=== PATIENT | male | born 1960 | race Caucasian/White ===

== ENCOUNTER 2018-04-14 07:59 | Inpatient (IN) | payer BC ==
[2018-04-14] MEDS ORDERED: Sodium Chloride 0.9% 10 ML Syringe FLUSH PRN (08:17)
[2018-04-14] MEDS ORDERED: Sodium Chloride 0.9% 1,000 ML IV STA (08:17)
[2018-04-14] MEDS ORDERED: HYDROmorphone 0.5 MG/0.5 ML SYRINGE IVPUSH ONE ×2 (08:19→09:20)
--- NOTE | 2018-04-14 09:32 | US ---
Limited abdominal ultrasound: Multiple real-time images of the upper right abdomen were obtained. Comparison: No previous study. Technologist's note: Suboptimal exam due to bowel gas. Findings: Multiple gallstones are seen. No gallbladder wall thickening is seen. Common bile duct measures at the upper limits of normal at 7 mm. Liver is echogenic. No discrete abnormality is seen within the liver. Right kidney shows no hydronephrosis or mass. Right kidney measures 11.4 cm in length. Inferior vena cava is patent. Pancreas is incompletely seen. Visualized portions of the pancreas are within normal limits. Portal vein shows normal hepatopedal flow. Impression: 1. Multiple gallstones. No gallbladder wall thickening is seen. Common bile duct measures at the upper limits of normal at 7 mm. 2. Echogenic liver most likely representing fatty infiltration. 3. No additional abnormality is appreciated on right upper quadrant abdominal ultrasound. Diagnostic code #3
[2018-04-14] MEDS ORDERED: Labetalol 100 MG/20 ML MDV IVPUSH ONE ×2 (09:46→10:49)
--- NOTE | 2018-04-14 10:09 | EDM.PDOC ---
ED HPI GENERAL MEDICAL PROBLEM - General Chief Complaint: Chest Pain Stated Complaint: [facility] Time Seen by Provider: 04/14/18 08:07 Source of Information: Reports: Patient, EMS History Limitations: Reports: No Limitations - History of Present Illness INITIAL COMMENTS - FREE TEXT/NARRATIVE: The patient arrived by [facility]. He woke up this morning and had nausea and vomiting. He then developed epigastric and RUQ abdominal pain. The pain also traveled to his chest. He has some mild shortness of breath. He has no diarrhea or dysuria. He has no fever, chills or cough. He has a history of CABG 6 years ago. He still has his gallbladder and appendix. Onset: Sudden Duration: Hour(s): Location: Reports: Chest, Abdomen Quality: Reports: Sharp Severity: Moderate Improves with: Reports: None Worsens with: Reports: None Associated Symptoms: Reports: Chest Pain, Nausea/Vomiting, Shortness of Breath. Denies: Fever/Chills, Headaches Treatments ARCHIVES TECHNICIAN: Reports: See EMS Report, Other (see below) Other Treatments ARCHIVES TECHNICIAN: metoprolol Chest Pain Score (Numeric/FACES): 6 - Related Data Allergies Allergy/AdvReac Type Severity Reaction Status Date / Time No Known Allergies Allergy Verified 04/14/18 08:10 Home Meds: Home Meds Dapagliflozin/Metformin HCl [Xigduo Xr 5 mg-1,000 mg Tablet] 2 tab PO DAILY [History] Ezetimibe [Zetia] 10 mg PO DAILY 04/14/18 [History] Liraglutide [Victoza 3-Tez] 1.8 mg SQ DAILY 04/14/18 [History] Lisinopril [Zestril] 40 mg PO DAILY 04/14/18 [History] Nebivolol HCl [Bystolic] 10 mg PO DAILY 04/14/18 [History] Pioglitazone [Actos] 30 mg PO DAILY 04/14/18 [History] atorvaSTATin [Lipitor] 40 mg PO DAILY 04/14/18 [History] Past Medical History HEENT History: Reports: None Cardiovascular History: Reports: Hypertension, [place] Endocrine/Metabolic History: Reports: Diabetes, Type II - Past Surgical History HEENT Surgical History: Reports: ERICA Cardiovascular Surgical History: Reports: Coronary Artery Bypass Social & Family History - Family History Family Medical History: Noncontributory - Tobacco Use Smoking Status *Q: Former Smoker Used Tobacco, but Quit: Yes Month/Year Tobacco Last Used: 2012 - Caffeine Use Caffeine Use: Reports: Soda - Recreational Drug Use Recreational Drug Use: No ED ROS GENERAL - Review of Systems Review Of Systems: See Below Constitutional: Reports: No Symptoms HEENT: Reports: No Symptoms Respiratory: Reports: Shortness of Breath Cardiovascular: Reports: Chest Pain Endocrine: Reports: No Symptoms GI/Abdominal: Reports: Abdominal Pain, Nausea, Vomiting : Reports: No Symptoms Musculoskeletal: Reports: No Symptoms ED EXAM, GENERAL - Physical Exam Exam: See Below Exam Limited By: No Limitations General Appearance: Alert, No Apparent Distress Eye Exam: Right Eye: Nystagmus Ears: Normal External Exam Nose: Normal Inspection Head: Atraumatic, Normocephalic Neck: Normal Inspection Respiratory/Chest: No Respiratory Distress, Lungs Clear, Normal Breath Sounds Cardiovascular: Regular Rate, Rhythm, No Edema, No Murmur GI/Abdominal: Soft, No Organomegaly, No Mass, Tender (Moderate tenderness to the epigastric and RUQ) Back Exam: Normal Inspection Extremities: Normal Inspection EKG INTERPRETATION EKG Date: 04/14/18 Time: 08:06 Rhythm: NSR Rate (Beats/Min): 76 [place]: Normal P-Wave: Present QRS: Normal ST-T: Normal QT: Normal Course - Vital Signs Last Recorded V/S: Last Vital Signs Temp 96.9 F 04/14/18 08:06 Pulse 79 04/14/18 09:49 Resp 13 04/14/18 08:06 BP 202/100 H 04/14/18 09:49 Pulse Ox 94 L 04/14/18 08:06 - Orders/Labs/Meds Orders: Active Orders 24 hr Category Date Time Status EKG Documentation Completion [RC] ASDIRECTED Care 04/14/18 08:06 Active Peripheral IV Care [RC] . DIRECTED Care 04/14/18 08:18 Active Chest 1V Frontal [CR] Stat Exams 04/14/18 08:17 Taken GLYCOSYLATED HEMOGLOBIN,HGBA1C [CHEM] Stat Lab 04/14/18 10:16 Ordered UA W/MICROSCOPIC [URIN] Stat Lab 04/14/18 08:34 Ordered Sodium Chloride 0.9% [Saline Flush] Med 04/14/18 08:17 Active 10 ml FLUSH ASDIRECTED PRN Peripheral IV Insertion Adult [OM.PC] Stat Oth 08/30/18 08:17 Ordered EKG 12 Lead [EK] Stat Ther 04/14/18 08:06 Ordered Medication Orders Sodium Chloride (Saline Flush) 10 ml FLUSH ASDIRECTED PRN PRN Reason: Keep Vein Open Last Admin: 04/14/18 08:26 Dose: 10 ml Labs: Laboratory Tests 04/14/18 04/14/18 04/14/18 Range/Units 08:30 08:30 08:34 WBC 11.77 H (4.23-9.07) K/mm3 RBC 6.64 H (4.63-6.08) M/mm3 Hgb 18.8 H (13.7-17.5) gm/L Hct 54.4 H (40.1-51.0) % MCV 81.9 (79.0-92.2) fl MCH 28.3 (25.7-32.2) pg MCHC 34.6 (32.2-35.5) g/dl RDW Std Deviation 41.5 (35.1-43.9) fL Plt Count 222 (163-337) K/mm3 MPV 10.2 (9.4-12.3) fl Neut % (Auto) 88.5 H (34.0-67.9) % Lymph % (Auto) 6.5 L (21.8-53.1) % [place] % (Auto) 4.1 L (5.3-12.2) % Eos % (Auto) 0.1 L (0.8-7.0) Baso % (Auto) 0.3 (0.1-1.2) % Neut # (Auto) 10.43 H (1.78-5.38) K/mm3 Lymph # (Auto) 0.76 L (1.32-3.57) K/mm3 [place] # (Auto) 0.48 (0.30-0.82) K/mm3 Eos # (Auto) 0.01 L (0.04-0.54) K/mm3 Baso # (Auto) 0.03 (0.01-0.08) K/mm3 Manual Slide Review Abnormal smear Sodium 138 (136-145) mEq/L Potassium 4.3 (3.5-5.1) mEq/L Chloride 102 (98-107) mEq/L Carbon Dioxide 25 (21-32) mEq/L Anion Gap 15.3 H (5-15) BUN 24 H (7-18) mg/dL Creatinine 1.1 (0.7-1.3) mg/dL Est Cr Clr Drug Dosing 63.67 mL/min Estimated GFR (MDRD) > 60 (>60) mL/min BUN/Creatinine Ratio 21.8 H (14-18) Glucose 349 H (74-106) mg/dL Calcium 9.3 (8.5-10.1) mg/dL Total Bilirubin 0.6 (0.2-1.0) mg/dL AST 18 (15-37) U/L ALT 25 (16-63) U/L Alkaline Phosphatase 91 (46-116) U/L Troponin I < 0.017 (0.00-0.056) ng/mL Total Protein 7.6 (6.4-8.2) g/dl Albumin 4.1 (3.4-5.0) g/dl Globulin 3.5 gm/dL Albumin/Globulin Ratio 1.2 (1-2) Lipase 18897 H (73-393) U/L Urine Color Yellow (Yellow) Urine Appearance Slt cloudy H (Clear) Urine pH 6.0 (5.0-8.0) Ur Specific [place] 1.015 (1.005-1.030) Urine Protein 2+ H (Negative) Urine Glucose (UA) 2+ H (Negative) Urine Ketones Trace H (Negative) Urine Occult Blood 1+ H (Negative) Urine Nitrite Negative (Negative) Urine Bilirubin Negative (Negative) Urine Urobilinogen 0.2 (0.2-1.0) Ur Leukocyte Esterase Negative (Negative) Urine RBC 0-5 (0-5) /hpf Urine WBC 0-5 (0-5) /hpf Ur Epithelial Cells 0-5 (0-5) /hpf Urine Bacteria Not seen (FEW) /hpf Urine Mucus Not seen (FEW) /hpf Meds: Medications Generic Name Dose Route Start Last Admin Trade Name Freq PRN Reason Stop Dose Admin Sodium Chloride 10 ml 04/14/18 08:17 04/14/18 08:26 Saline Flush FLUSH 10 ml ASDIRECTED PRN Administration Keep Vein Open Discontinued Medications Generic Name Dose Route Start Last Admin Trade Name Freq PRN Reason Stop Dose Admin Hydromorphone HCl 0.5 mg 04/14/18 08:19 04/14/18 08:26 Dilaudid IVPUSH 04/14/18 08:20 0.5 mg ONETIME ONE Administration Hydromorphone HCl 0.5 mg 04/14/18 09:20 04/14/18 09:27 Dilaudid IVPUSH 04/14/18 09:21 0.5 mg ONETIME ONE Administration Sodium Chloride 1,000 mls @ 1,000 mls/hr 04/14/18 08:17 04/14/18 08:27 Normal Saline IV 04/14/18 09:16 1,000 mls/hr .BOLUS STA Administration Labetalol HCl 20 mg 04/14/18 09:46 04/14/18 09:49 Normodyne IVPUSH 04/14/18 09:47 20 mg ONETIME ONE Administration Protocol - Re-Assessments/Exams Free Text/Narrative Re-Assessment/Exam: 04/14/18 10:22 The patient came by ambulance. He was given some zofran. I ordered an IV, labs , UA, EKG, CXR, and an US of his gallbladder. His EKG shows a NSR with no acute changes. His CXR looks good. His US shows multiple gallstones. No gallbladder wall thickening is seen. Common bile duct measures at the upper limits of normal at 7mm. Echogenic liver most likely representing fatty infiltration. No additional abnormality is appreciated on right upper quadrant abdominal US. His WBC was elevated at 11.77. His Hgb was elevated at 18.8. His anion gap was elevated at 15.3. His glucose was elevated at 349. His troponin was negative. His lipase was very elevated at 15,283. His UA shows no UTI. He has gallbladder pancreatitis. His BP was high. He vomited up his medications. I will give him a dose of labetalol here. I called Dr Monte and he agreed to the admission. Departure - Departure Time of Disposition: 10:30 Disposition: Admitted As Inpatient 65 Condition: Fair Clinical Impression: Atypical chest pain, Gallstones Pancreatitis Qualifiers: Chronicity: acute Pancreatitis type: biliary Acute pancreatitis complication: no infection or necrosis Qualified Code(s): K85.10 - Biliary acute pancreatitis without necrosis or infection Hypertension Qualifiers: Hypertension type: essential hypertension Qualified Code(s): I10 - Essential ( primary) hypertension Referrals: PCP,Not In Area [Primary Care Provider] - Forms: ED Department Discharge - My Orders Last 24 Hours: My Active Orders 04/14/18 08:06 EKG Documentation Completion [RC] ASDIRECTED EKG 12 Lead [EK] Stat 04/14/18 08:17 Chest 1V Frontal [CR] Stat Sodium Chloride 0.9% [Saline Flush] 10 ml FLUSH ASDIRECTED PRN Peripheral IV Insertion Adult [OM.PC] Stat 04/14/18 08:18 Peripheral IV Care [RC] . DIRECTED 04/14/18 08:34 UA W/MICROSCOPIC [URIN] Stat 04/14/18 10:16 GLYCOSYLATED HEMOGLOBIN,HGBA1C [CHEM] Stat - Assessment/Plan Last 24 Hours: My Active Orders 04/14/18 08:06 EKG Documentation Completion [RC] ASDIRECTED EKG 12 Lead [EK] Stat 04/14/18 08:17 Chest 1V Frontal [CR] Stat Sodium Chloride 0.9% [Saline Flush] 10 ml FLUSH ASDIRECTED PRN Peripheral IV Insertion Adult [OM.PC] Stat 04/14/18 08:18 Peripheral IV Care [RC] . DIRECTED 04/14/18 08:34 UA W/MICROSCOPIC [URIN] Stat 04/14/18 10:16 GLYCOSYLATED HEMOGLOBIN,HGBA1C [CHEM] Stat
[2018-04-14] MEDS ORDERED: Acetaminophen 325 MG Tab PO PRN (11:51)
[2018-04-14] MEDS ORDERED: Bisacodyl 5 MG Tab PO PRN (11:51)
[2018-04-14] MEDS ORDERED: Promethazine 12.5 MG in Sodium Chloride 0.9% 50 ML IV PRN (11:51)
[2018-04-14] MEDS ORDERED: Polyethylene Glycol 3350 Powder 17 GM Packet PO PRN (11:51)
[2018-04-14] MEDS ORDERED: Metoprolol Tartrate 5 MG/5 ML SDV IVPUSH PRN (11:51)
[2018-04-14] MEDS ORDERED: Ondansetron 4 MG/2 ML SDV IV PRN (11:51)
[2018-04-14] MEDS ORDERED: Acetaminophen 650 MG Supp RECTAL PRN (11:51)
[2018-04-14] MEDS ORDERED: LORazepam 2 MG/ML SDV IV PRN (11:51)
[2018-04-14] MEDS ORDERED: LORazepam 2 MG/ML SDV IVPUSH PRN (11:51)
[2018-04-14] MEDS ORDERED: Albuterol/Ipratropium 3.0-0.5 MG/3 ML Neb Soln NEB PRN (11:51)
[2018-04-14] MEDS ORDERED: Docusate Sodium 100 MG Cap PO PRN (11:51)
[2018-04-14] MEDS ORDERED: Magnesium Hydroxide 400 MG/5 ML Susp 30 ML Cup PO PRN (11:51)
[2018-04-14] MEDS ORDERED: Nicotine 21 MG/24 Hr Patch TRDERM PRN (12:00)
--- NOTE | 2018-04-14 12:08 | PCM.HP ---
<ToniaPaola - Last Filed: 04/14/18 13:56> H&P History of Present Illness - General Date of Service: 04/14/18 Admit Problem/Dx: Admission Diagnosis/Problem Admission Diagnosis/Problem Pancreatitis Source of Information: Patient History Limitations: Reports: No Limitations - History of Present Illness Initial Comments - Free Text/Narative: 57 y/o male arrived to ER 04/14 via [facility]. Upon waking up this morning he was experiencing nausea and vomiting followed by epigastric and RUQ pain, which radiated to his chest. He also had some dyspnea and diarrhea, but denied dysuria, fever, chills, and cough. He had an [place] and CABG 6 years ago. ER workup included EKG which showed NSR and no acute changes. CXR was benign. Abdominal US was significant for gallstones and echogenic liver but negative for gallbladder wall thickening or any other abnormalities on RUQ. Labs ordered in the ER showed WBC elevated at 11.77, Hgb elevated at 18.8, anion gap elevated at 15.3, glucose elevated at 349, negative troponin, and lipase very elevated at 15,283. His UA shows no UTI. His BP was high at 202/100. He does have hypertension but vomited up his BP medications today. He was given a dose of labetalol in the ER. It was determined the patient has gallbladder pancreatitis that warranted admission to the hospital for further management. Onset of Symptoms: Reports: Today Duration of Symptoms: Reports: Hour(s): Location: Reports: Abdomen Severity: Severe Associated Symptoms: Reports: Nausea/Vomiting, Shortness of Breath Chest Pain Score (Numeric/FACES): 6 Abdomen Pain Score (Numeric/FACES): 4 - Related Data Allergies/Adverse Reactions: Allergies Allergy/AdvReac Type Severity Reaction Status Date / Time No Known Allergies Allergy Verified 04/14/18 08:10 Home Medications: Home Meds Aspirin 1 tab PO DAILY 04/14/18 [History] Dapagliflozin/Metformin HCl [Xigduo Xr 5 mg-1,000 mg Tablet] 2 tab PO DAILY [History] Ezetimibe [Zetia] 10 mg PO DAILY 04/14/18 [History] Liraglutide [Victoza 3-Tez] 1.8 mg SQ DAILY 04/14/18 [History] Lisinopril [Zestril] 40 mg PO DAILY 04/14/18 [History] Nebivolol HCl [Bystolic] 10 mg PO DAILY 04/14/18 [History] Pioglitazone [Actos] 30 mg PO DAILY 04/14/18 [History] atorvaSTATin [Lipitor] 40 mg PO DAILY 04/14/18 [History] Past Medical History HEENT History: Reports: None Cardiovascular History: Reports: Hypertension, [place] Endocrine/Metabolic History: Reports: Diabetes, Type II - Past Surgical History HEENT Surgical History: Reports: LASIK Cardiovascular Surgical History: Reports: Coronary Artery Bypass Social & Family History - Family History Family Medical History: Noncontributory - Tobacco Use Smoking Status *Q: Former Smoker Used Tobacco, but Quit: Yes Month/Year Tobacco Last Used: 08/2005 Second Hand Smoke Exposure: Yes - Caffeine Use Caffeine Use: Reports: Coffee, Energy Drinks, Soda, Tea - Recreational Drug Use Recreational Drug Use: No H&P Review of Systems - Review of Systems: Review Of Systems: See Below General: Reports: Fatigue HEENT: Reports: No Symptoms Pulmonary: Reports: Shortness of Breath Cardiovascular: Reports: No Symptoms Gastrointestinal: Reports: Abdominal Pain, Diarrhea, Nausea, Vomiting Genitourinary: Reports: No Symptoms Musculoskeletal: Reports: No Symptoms Skin: Reports: No Symptoms Psychiatric: Reports: No Symptoms Neurological: Reports: No Symptoms Hematologic/Lymphatic: Reports: No Symptoms Immunologic: Reports: No Symptoms Review of Systems Comment:: Patient is feeling better following administration of pain medications but abdominal discomfort has not disappeared completely. He has not experienced vomiting or diarrhea since arrival to the hospital but is still having some nausea. He is tired and wishes to rest as he was unable to sleep all night. He reports no other symptoms currently. Exam - Exam Exam: See Below - Vital Signs Vital Signs: Last Vital Signs Temp 96.9 F 04/14/18 08:06 Pulse 81 04/14/18 10:51 Resp 13 04/14/18 08:06 BP 216/98 H 04/14/18 10:51 Pulse Ox 94 L 04/14/18 08:06 Weight: 89.086 kg - Exam General: Alert, Oriented, Cooperative, Mild Distress HEENT: Conjunctiva Clear, EOMI, Hearing Intact, Nares Patent, Pupils Equal, Pupils Reactive Neck: Supple Lungs: Clear to Auscultation, Normal Respiratory Effort Cardiovascular: Regular Rate, Regular Rhythm GI/Abdominal Exam: Tender (ruq, epigastric) (Male) Exam: Deferred Rectal (Males) Exam: Deferred Back Exam: Normal Inspection, Full Range of Motion Extremities: Normal Inspection, Normal Range of Motion, Non-Tender, No Pedal Edema Peripheral Pulses: 2+: Radial (L), Radial (R), Posterior Tibial (L), Posterior Tibial (R) Skin: Warm, Dry, Intact Neuro Extensive - Mental Status: Normal Mood/Affect, Normal Cognition, Memory Intact Psychiatric: Alert, Normal Affect, Normal Mood Physical Exam Comments:: Patient is in mild distress but is cooperative and pleasant. There is significant epigastric and RUQ tenderness upon palpation. No other abnormalities found upon physical exam. - Patient Data Lab Results Last 24 hrs: Laboratory Results - last 24 hr 04/14/18 04/14/18 04/14/18 Range/Units 08:30 08:30 08:30 WBC 11.77 H (4.23-9.07) K/mm3 RBC 6.64 H (4.63-6.08) M/mm3 Hgb 18.8 H (13.7-17.5) gm/L Hct 54.4 H (40.1-51.0) % MCV 81.9 (79.0-92.2) fl MCH 28.3 (25.7-32.2) pg MCHC 34.6 (32.2-35.5) g/dl RDW Std Deviation 41.5 (35.1-43.9) fL Plt Count 222 (163-337) K/mm3 MPV 10.2 (9.4-12.3) fl Neut % (Auto) 88.5 H (34.0-67.9) % Lymph % (Auto) 6.5 L (21.8-53.1) % [place] % (Auto) 4.1 L (5.3-12.2) % Eos % (Auto) 0.1 L (0.8-7.0) Baso % (Auto) 0.3 (0.1-1.2) % Neut # (Auto) 10.43 H (1.78-5.38) K/mm3 Lymph # (Auto) 0.76 L (1.32-3.57) K/mm3 [place] # (Auto) 0.48 (0.30-0.82) K/mm3 Eos # (Auto) 0.01 L (0.04-0.54) K/mm3 Baso # (Auto) 0.03 (0.01-0.08) K/mm3 Manual Slide Review Abnormal smear Sodium 138 (136-145) mEq/L Potassium 4.3 (3.5-5.1) mEq/L Chloride 102 (98-107) mEq/L Carbon Dioxide 25 (21-32) mEq/L Anion Gap 15.3 H (5-15) BUN 24 H (7-18) mg/dL Creatinine 1.1 (0.7-1.3) mg/dL Est Cr Clr Drug Dosing 63.67 mL/min Estimated GFR (MDRD) > 60 (>60) mL/min BUN/Creatinine Ratio 21.8 H (14-18) Glucose 349 H (74-106) mg/dL Hemoglobin A1c 8.90 H (4.50-6.20) % Calcium 9.3 (8.5-10.1) mg/dL Total Bilirubin 0.6 (0.2-1.0) mg/dL AST 18 (15-37) U/L ALT 25 (16-63) U/L Alkaline Phosphatase 91 (46-116) U/L Troponin I < 0.017 (0.00-0.056) ng/mL Total Protein 7.6 (6.4-8.2) g/dl Albumin 4.1 (3.4-5.0) g/dl Globulin 3.5 gm/dL Albumin/Globulin Ratio 1.2 (1-2) Lipase 66643 H (73-393) U/L Urine Color (Yellow) Urine Appearance (Clear) Urine pH (5.0-8.0) Ur Specific [place] (1.005-1.030) Urine Protein (Negative) Urine Glucose (UA) (Negative) Urine Ketones (Negative) Urine Occult Blood (Negative) Urine Nitrite (Negative) Urine Bilirubin (Negative) Urine Urobilinogen (0.2-1.0) Ur Leukocyte Esterase (Negative) Urine RBC (0-5) /hpf Urine WBC (0-5) /hpf Ur Epithelial Cells (0-5) /hpf Urine Bacteria (FEW) /hpf Urine Mucus (FEW) /hpf 04/14/18 Range/Units 08:34 WBC (4.23-9.07) K/mm3 RBC (4.63-6.08) M/mm3 Hgb (13.7-17.5) gm/L Hct (40.1-51.0) % MCV (79.0-92.2) fl MCH (25.7-32.2) pg MCHC (32.2-35.5) g/dl RDW Std Deviation (35.1-43.9) fL Plt Count (163-337) K/mm3 MPV (9.4-12.3) fl Neut % (Auto) (34.0-67.9) % Lymph % (Auto) (21.8-53.1) % [place] % (Auto) (5.3-12.2) % Eos % (Auto) (0.8-7.0) Baso % (Auto) (0.1-1.2) % Neut # (Auto) (1.78-5.38) K/mm3 Lymph # (Auto) (1.32-3.57) K/mm3 [place] # (Auto) (0.30-0.82) K/mm3 Eos # (Auto) (0.04-0.54) K/mm3 Baso # (Auto) (0.01-0.08) K/mm3 Manual Slide Review Sodium (136-145) mEq/L Potassium (3.5-5.1) mEq/L Chloride (98-107) mEq/L Carbon Dioxide (21-32) mEq/L Anion Gap (5-15) BUN (7-18) mg/dL Creatinine (0.7-1.3) mg/dL Est Cr Clr Drug Dosing mL/min Estimated GFR (MDRD) (>60) mL/min BUN/Creatinine Ratio (14-18) Glucose (74-106) mg/dL Hemoglobin A1c (4.50-6.20) % Calcium (8.5-10.1) mg/dL Total Bilirubin (0.2-1.0) mg/dL AST (15-37) U/L ALT (16-63) U/L Alkaline Phosphatase (46-116) U/L Troponin I (0.00-0.056) ng/mL Total Protein (6.4-8.2) g/dl Albumin (3.4-5.0) g/dl Globulin gm/dL Albumin/Globulin Ratio (1-2) Lipase (73-393) U/L Urine Color Yellow (Yellow) Urine Appearance Slt cloudy H (Clear) Urine pH 6.0 (5.0-8.0) Ur Specific [place] 1.015 (1.005-1.030) Urine Protein 2+ H (Negative) Urine Glucose (UA) 2+ H (Negative) Urine Ketones Trace H (Negative) Urine Occult Blood 1+ H (Negative) Urine Nitrite Negative (Negative) Urine Bilirubin Negative (Negative) Urine Urobilinogen 0.2 (0.2-1.0) Ur Leukocyte Esterase Negative (Negative) Urine RBC 0-5 (0-5) /hpf Urine WBC 0-5 (0-5) /hpf Ur Epithelial Cells 0-5 (0-5) /hpf Urine Bacteria Not seen (FEW) /hpf Urine Mucus Not seen (FEW) /hpf Result Diagrams: 04/14/18 08:30 04/14/18 08:30 - Problem List (1) Pancreatitis SNOMED Code(s): 92480596 ICD Code: K85.90 - ACUTE PANCREATITIS WITHOUT NECROSIS OR INFECTION, UNSP Status: Acute Current Visit: Yes Qualifiers: Chronicity: acute Pancreatitis type: biliary Acute pancreatitis complication: no infection or necrosis Qualified Code(s): K85.10 - Biliary acute pancreatitis without necrosis or infection (2) Gallstones SNOMED Code(s): 131374657 ICD Code: K80.20 - CALCULUS OF GALLBLADDER W/O CHOLECYSTITIS W/O OBSTRUCTION Status: Acute Current Visit: Yes (3) Hypertension SNOMED Code(s): 81036916 ICD Code: I10 - ESSENTIAL (PRIMARY) HYPERTENSION Status: Acute Current Visit: Yes Qualifiers: Hypertension type: essential hypertension Qualified Code(s): I10 - Essential (primary) hypertension (4) Diabetes mellitus SNOMED Code(s): 00922096 ICD Code: E11.9 - TYPE 2 DIABETES MELLITUS WITHOUT COMPLICATIONS Status: Acute Current Visit: Yes Qualifiers: Diabetes mellitus type: type 2 Problem List Initiated/Reviewed/Updated: Yes Orders Last 24hrs: Active Orders 24 hr Category Date Time Status Admission Status [Patient Status] [ADT] Routine ADT 04/14/18 10:49 Active EKG Documentation Completion [RC] ASDIRECTED Care 04/14/18 08:06 Active Peripheral IV Care [RC] . DIRECTED Care 04/14/18 08:18 Active Chest 1V Frontal [CR] Stat Exams 04/14/18 08:17 Taken UA W/MICROSCOPIC [URIN] Stat Lab 04/14/18 08:34 Ordered Sodium Chloride 0.9% [Saline Flush] Med 04/14/18 08:17 Active 10 ml FLUSH ASDIRECTED PRN Peripheral IV Insertion Adult [OM.PC] Stat Oth 04/14/18 08:17 Ordered EKG 12 Lead [EK] Stat Ther 04/14/18 08:06 Ordered Medication Orders Sodium Chloride (Saline Flush) 10 ml FLUSH ASDIRECTED PRN PRN Reason: Keep Vein Open Last Admin: 04/14/18 08:26 Dose: 10 ml Assessment/Plan Comment:: Gallstone pancreatitis * RUQ/epigastric pain associated with N/V/D and SOB * ER work-up * Lipase elevated at 15,283 * US showed gallstones, echogenic liver * EKG unremarkable and troponin negative * Risk factors * No previous history of this * Denies alcohol use * On victoza with pancreatitis as a side effect - hold victoza for now * Supportive care and IVF * IVF - lactated ringers * Pain medications PRN * Zofran PRN for N/V * Jennie's criteria * WBC > 16K --> NO (11.77) * Age > 55 --> YES, age 57 * Glucose > 200 --> YES, 349 * AST > 250 --> NO (18) * LDH > 350 --> NO (235) * 2 points = severe pancreatitis unlikely with 1% predicted mortality * Will re-assess in 48 hours * Consult surgery for further work-up * NPO with ice chips only Malignant hypertension * Blood pressure was 202/100 in the ER - given dose of IV labetalol * 216/98 upon admission - treating with metoprolol, hydralazine, and clonidine * He vomited his blood pressure medication this AM; could also be elevated due to pain * Continue to monitor Diabetes mellitus * Glucose was 349 in ER, now 238 * HbgA1c 8.9 * Hold home diabetes medications for now; use insulin for blood sugar control Paola Randall, MS-3. Dr. Monte has examined the patient and reviewed the note. <Lolis Monte T - Last Filed: 04/14/18 18:00> H&P History of Present Illness - General Admit Problem/Dx: Admission Diagnosis/Problem Admission Diagnosis/Problem Pancreatitis Exam - Vital Signs Vital Signs: Last Vital Signs Temp 36.6 C 04/14/18 16:14 Pulse 92 04/14/18 16:14 Resp 14 04/14/18 16:14 BP 168/82 H 04/14/18 15:37 Pulse Ox 98 04/14/18 16:14 - Patient Data Lab Results Last 24 hrs: Laboratory Results - last 24 hr 04/14/18 04/14/18 04/14/18 Range/Units 08:30 08:30 08:30 WBC 11.77 H (4.23-9.07) K/mm3 RBC 6.64 H (4.63-6.08) M/mm3 Hgb 18.8 H (13.7-17.5) gm/L Hct 54.4 H (40.1-51.0) % MCV 81.9 (79.0-92.2) fl MCH 28.3 (25.7-32.2) pg MCHC 34.6 (32.2-35.5) g/dl RDW Std Deviation 41.5 (35.1-43.9) fL Plt Count 222 (163-337) K/mm3 MPV 10.2 (9.4-12.3) fl Neut % (Auto) 88.5 H (34.0-67.9) % Lymph % (Auto) 6.5 L (21.8-53.1) % [place] % (Auto) 4.1 L (5.3-12.2) % Eos % (Auto) 0.1 L (0.8-7.0) Baso % (Auto) 0.3 (0.1-1.2) % Neut # (Auto) 10.43 H (1.78-5.38) K/mm3 Lymph # (Auto) 0.76 L (1.32-3.57) K/mm3 [place] # (Auto) 0.48 (0.30-0.82) K/mm3 Eos # (Auto) 0.01 L (0.04-0.54) K/mm3 Baso # (Auto) 0.03 (0.01-0.08) K/mm3 Manual Slide Review Abnormal smear Sodium 138 (136-145) mEq/L Potassium 4.3 (3.5-5.1) mEq/L Chloride 102 (98-107) mEq/L Carbon Dioxide 25 (21-32) mEq/L Anion Gap 15.3 H (5-15) BUN 24 H (7-18) mg/dL Creatinine 1.1 (0.7-1.3) mg/dL Est Cr Clr Drug Dosing 63.67 mL/min Estimated GFR (MDRD) > 60 (>60) mL/min BUN/Creatinine Ratio 21.8 H (14-18) Glucose 349 H (74-106) mg/dL POC Glucose (70-105) mg/dL Hemoglobin A1c 8.90 H (4.50-6.20) % Calcium 9.3 (8.5-10.1) mg/dL Total Bilirubin 0.6 (0.2-1.0) mg/dL AST 18 (15-37) U/L ALT 25 (16-63) U/L Alkaline Phosphatase 91 (46-116) U/L Lactate Dehydrogenase (85-227) U/L Troponin I < 0.017 (0.00-0.056) ng/mL C-Reactive Protein (<1.0) mg/dL Total Protein 7.6 (6.4-8.2) g/dl Albumin 4.1 (3.4-5.0) g/dl Globulin 3.5 gm/dL Albumin/Globulin Ratio 1.2 (1-2) Lipase 34381 H (73-393) U/L Urine Color (Yellow) Urine Appearance (Clear) Urine pH (5.0-8.0) Ur Specific [place] (1.005-1.030) Urine Protein (Negative) Urine Glucose (UA) (Negative) Urine Ketones (Negative) Urine Occult Blood (Negative) Urine Nitrite (Negative) Urine Bilirubin (Negative) Urine Urobilinogen (0.2-1.0) Ur Leukocyte Esterase (Negative) Urine RBC (0-5) /hpf Urine WBC (0-5) /hpf Ur Epithelial Cells (0-5) /hpf Urine Bacteria (FEW) /hpf Urine Mucus (FEW) /hpf 04/14/18 04/14/18 04/14/18 Range/Units 08:34 12:08 12:35 WBC (4.23-9.07) K/mm3 RBC (4.63-6.08) M/mm3 Hgb (13.7-17.5) gm/L Hct (40.1-51.0) % MCV (79.0-92.2) fl MCH (25.7-32.2) pg MCHC (32.2-35.5) g/dl RDW Std Deviation (35.1-43.9) fL Plt Count (163-337) K/mm3 MPV (9.4-12.3) fl Neut % (Auto) (34.0-67.9) % Lymph % (Auto) (21.8-53.1) % [place] % (Auto) (5.3-12.2) % Eos % (Auto) (0.8-7.0) Baso % (Auto) (0.1-1.2) % Neut # (Auto) (1.78-5.38) K/mm3 Lymph # (Auto) (1.32-3.57) K/mm3 [place] # (Auto) (0.30-0.82) K/mm3 Eos # (Auto) (0.04-0.54) K/mm3 Baso # (Auto) (0.01-0.08) K/mm3 Manual Slide Review Sodium (136-145) mEq/L Potassium (3.5-5.1) mEq/L Chloride (98-107) mEq/L Carbon Dioxide (21-32) mEq/L Anion Gap (5-15) BUN (7-18) mg/dL Creatinine (0.7-1.3) mg/dL Est Cr Clr Drug Dosing mL/min Estimated GFR (MDRD) (>60) mL/min BUN/Creatinine Ratio (14-18) Glucose (74-106) mg/dL POC Glucose 238 H (70-105) mg/dL Hemoglobin A1c (4.50-6.20) % Calcium (8.5-10.1) mg/dL Total Bilirubin (0.2-1.0) mg/dL AST (15-37) U/L ALT (16-63) U/L Alkaline Phosphatase (46-116) U/L Lactate Dehydrogenase (85-227) U/L Troponin I (0.00-0.056) ng/mL C-Reactive Protein 2.1 H* (<1.0) mg/dL Total Protein (6.4-8.2) g/dl Albumin (3.4-5.0) g/dl Globulin gm/dL Albumin/Globulin Ratio (1-2) Lipase (73-393) U/L Urine Color Yellow (Yellow) Urine Appearance Slt cloudy H (Clear) Urine pH 6.0 (5.0-8.0) Ur Specific [place] 1.015 (1.005-1.030) Urine Protein 2+ H (Negative) Urine Glucose (UA) 2+ H (Negative) Urine Ketones Trace H (Negative) Urine Occult Blood 1+ H (Negative) Urine Nitrite Negative (Negative) Urine Bilirubin Negative (Negative) Urine Urobilinogen 0.2 (0.2-1.0) Ur Leukocyte Esterase Negative (Negative) Urine RBC 0-5 (0-5) /hpf Urine WBC 0-5 (0-5) /hpf Ur Epithelial Cells 0-5 (0-5) /hpf Urine Bacteria Not seen (FEW) /hpf Urine Mucus Not seen (FEW) /hpf 04/14/18 04/14/18 Range/Units 12:35 16:56 WBC (4.23-9.07) K/mm3 RBC (4.63-6.08) M/mm3 Hgb (13.7-17.5) gm/L Hct (40.1-51.0) % MCV (79.0-92.2) fl MCH (25.7-32.2) pg MCHC (32.2-35.5) g/dl RDW Std Deviation (35.1-43.9) fL Plt Count (163-337) K/mm3 MPV (9.4-12.3) fl Neut % (Auto) (34.0-67.9) % Lymph % (Auto) (21.8-53.1) % [place] % (Auto) (5.3-12.2) % Eos % (Auto) (0.8-7.0) Baso % (Auto) (0.1-1.2) % Neut # (Auto) (1.78-5.38) K/mm3 Lymph # (Auto) (1.32-3.57) K/mm3 [place] # (Auto) (0.30-0.82) K/mm3 Eos # (Auto) (0.04-0.54) K/mm3 Baso # (Auto) (0.01-0.08) K/mm3 Manual Slide Review Sodium (136-145) mEq/L Potassium (3.5-5.1) mEq/L Chloride (98-107) mEq/L Carbon Dioxide (21-32) mEq/L Anion Gap (5-15) BUN (7-18) mg/dL Creatinine (0.7-1.3) mg/dL Est Cr Clr Drug Dosing mL/min Estimated GFR (MDRD) (>60) mL/min BUN/Creatinine Ratio (14-18) Glucose (74-106) mg/dL POC Glucose 185 H (70-105) mg/dL Hemoglobin A1c (4.50-6.20) % Calcium (8.5-10.1) mg/dL Total Bilirubin (0.2-1.0) mg/dL AST (15-37) U/L ALT (16-63) U/L Alkaline Phosphatase (46-116) U/L Lactate Dehydrogenase 235 H (85-227) U/L Troponin I (0.00-0.056) ng/mL C-Reactive Protein (<1.0) mg/dL Total Protein (6.4-8.2) g/dl Albumin (3.4-5.0) g/dl Globulin gm/dL Albumin/Globulin Ratio (1-2) Lipase (73-393) U/L Urine Color (Yellow) Urine Appearance (Clear) Urine pH (5.0-8.0) Ur Specific [place] (1.005-1.030) Urine Protein (Negative) Urine Glucose (UA) (Negative) Urine Ketones (Negative) Urine Occult Blood (Negative) Urine Nitrite (Negative) Urine Bilirubin (Negative) Urine Urobilinogen (0.2-1.0) Ur Leukocyte Esterase (Negative) Urine RBC (0-5) /hpf Urine WBC (0-5) /hpf Ur Epithelial Cells (0-5) /hpf Urine Bacteria (FEW) /hpf Urine Mucus (FEW) /hpf Result Diagrams: 04/14/18 08:30 04/14/18 08:30 Orders Last 24hrs: Active Orders 24 hr Category Date Time Status Admission Status [Patient Status] [ADT] Routine ADT 04/14/18 10:49 Active Accu Check [Blood Glucose Check, Bedside] [RC] 07,11,17 Care 04/14/18 12:28 Active ,21 Height and Weight [RC] 04 Care 04/14/18 11:51 Active Intake and Output [RC] 04,16 Care 04/14/18 11:52 Active Notify Provider Consults [RC] ASDIRECTED Care 04/14/18 12:12 Active Oxygen Therapy [RC] PRN Care 04/14/18 11:51 Active RT Aerosol Therapy [RC] ASDIRECTED Care 04/14/18 11:53 Active Up ad [place]ymber[place] [RC] ASDIRECTED Care 04/14/18 11:51 Active VTE/DVT Education [RC] PER UNIT ROUTINE Care 04/14/18 11:51 Active Vital Signs [RC] Q4HR Care 04/14/18 11:51 Active Consult to Physician [CONS] Routine Cons 04/14/18 12:09 Active Nothing per Oral Now Diet [DIET] Diet 04/14/18 Lunch Active Chest 1V Frontal [CR] Stat Exams 04/14/18 08:17 Taken BASIC METABOLIC PANEL,BMP [CHEM] AM Lab 04/15/18 05:11 Ordered BASIC METABOLIC PANEL,BMP [CHEM] AM Lab 04/16/18 05:11 Ordered BASIC METABOLIC PANEL,BMP [CHEM] AM Lab 04/17/18 05:11 Ordered BASIC METABOLIC PANEL,BMP [CHEM] AM Lab 04/18/18 05:11 Ordered BASIC METABOLIC PANEL,BMP [CHEM] AM Lab 04/19/18 05:11 Ordered C-REACTIVE PROTEIN [CHEM] AM Lab 04/15/18 05:11 Ordered C-REACTIVE PROTEIN [CHEM] AM Lab 04/16/18 05:11 Ordered C-REACTIVE PROTEIN [CHEM] AM Lab 04/17/18 05:11 Ordered C-REACTIVE PROTEIN [CHEM] AM Lab 04/18/18 05:11 Ordered C-REACTIVE PROTEIN [CHEM] AM Lab 04/19/18 05:11 Ordered CBC WITH AUTO DIFF [HEME] AM Lab 04/15/18 05:11 Ordered CBC WITH AUTO DIFF [HEME] AM Lab 04/16/18 05:11 Ordered CBC WITH AUTO DIFF [HEME] AM Lab 04/17/18 05:11 Ordered CBC WITH AUTO DIFF [HEME] AM Lab 04/18/18 05:11 Ordered CBC WITH AUTO DIFF [HEME] AM Lab 04/19/18 05:11 Ordered CULTURE BLOOD [BC] Stat Lab 04/14/18 12:35 Received CULTURE BLOOD [BC] Stat Lab 04/14/18 12:40 Received CULTURE URINE [RM] Stat Lab 04/14/18 08:34 Received MAGNESIUM [CHEM] AM Lab 04/15/18 05:11 Ordered MAGNESIUM [CHEM] AM Lab 04/16/18 05:11 Ordered MAGNESIUM [CHEM] AM Lab 04/17/18 05:11 Ordered MAGNESIUM [CHEM] AM Lab 04/18/18 05:11 Ordered MAGNESIUM [CHEM] AM Lab 04/19/18 05:11 Ordered UA W/MICROSCOPIC [URIN] Stat Lab 04/14/18 08:34 Ordered Acetaminophen [Tylenol] Med 04/14/18 11:51 Active 650 mg PO Q4H PRN Acetaminophen [Tylenol] Med 04/14/18 11:51 Active 650 mg RECTAL Q4H PRN Acetaminophen/HYDROcodone [[place] 325-5 MG] Med 04/14/18 11:51 Active 1 tab PO Q4H PRN Albuterol/Ipratropium [DuoNeb 3.0-0.5 MG/3 ML] Med 04/14/18 11:51 Active 3 ml NEB Q4H PRN Bisacodyl [Dulcolax] Med 04/14/18 11:51 Active 5 mg PO DAILY PRN Docusate Sodium [Colace] Med 04/14/18 11:51 Active 100 mg PO BID PRN Docusate Sodium/Sennosides [Senna Plus] Med 04/14/18 11:51 Active 1 tab PO BID PRN HYDROmorphone [Dilaudid] Med 04/14/18 12:17 Active 1 mg IVPUSH Q4H PRN Insulin Lispro [HumaLOG] Med 04/14/18 12:00 Active See Protocol SUBCUT Q6H LORazepam [Ativan] Med 04/14/18 11:51 Active 1 mg IV Q6H PRN LORazepam [Ativan] Med 04/14/18 11:51 Active 2 mg IVPUSH Q4H PRN Lactated Ringers [Ringers, Lactated] 1,000 ml Med 04/14/18 12:30 Active IV ASDIRECTED Magnesium Hydroxide [Milk of Magnesia] Med 04/14/18 11:51 Active 30 ml PO Q12H PRN Magnesium Rep Pharmacy to Dose [Pharmacy to Dose - Med 04/14/18 12:00 Active Magnesium Replacement] 1 dose .XX ASDIRECTED Metoprolol Tartrate [Lopressor] Med 04/14/18 11:51 Active 5 mg IVPUSH Q4H PRN Nicotine [Habitrol] Med 04/14/18 12:00 Active 21 mg TRDERM DAILY PRN Nitroglycerin [Nitro-Bid 2%] Med 04/14/18 16:00 Active 1 gm TOP Q8H Ondansetron [Zofran] Med 04/14/18 11:51 Active 4 mg IV Q6H PRN Patient's Own Medication [Ptom] Med 04/15/18 09:00 Active 0 each SUBCUT DAILY Polyethylene Glycol 3350 [MiraLAX] Med 04/14/18 11:51 Active 17 gm PO DAILY PRN Potassium Rep Pharmacy to Dose [Pharmacy to Dose - Med 04/14/18 12:00 Active Potassium Replacement] 1 dose .XX ASDIRECTED Promethazine [Phenergan] 12.5 mg Med 04/14/18 11:51 Active Sodium Chloride 0.9% [Normal Saline] 50 ml IV Q6H Remove Patch Med 04/15/18 12:00 Active 0 ea TRDERM Q24H Sodium Chloride 0.9% [Saline Flush] Med 04/14/18 08:17 Active 10 ml FLUSH ASDIRECTED PRN Temazepam [Restoril] Med 04/14/18 21:00 Active 15 mg PO BEDTIME PRN cloNIDine [Catapres] Med 04/15/18 09:00 Active 0.1 mg PO DAILY hydrALAZINE [Apresoline] Med 04/14/18 11:51 Active 20 mg IVPUSH Q4H PRN Blood Culture x2 Reflex Set [OM.PC] Stat Oth 04/14/18 12:00 Ordered Peripheral IV Insertion Adult [OM.PC] Stat Oth 04/14/18 08:17 Ordered Sequential Compression Device [OM.PC] Per Unit Routine Oth 04/14/18 11:52 Ordered Resuscitation Status Routine Resus Stat 04/14/18 11:51 Ordered EKG 12 Lead [EK] Stat Ther 04/14/18 08:06 Ordered Medication Orders Acetaminophen (Tylenol) 650 mg PO Q4H PRN PRN Reason: Pain (Mild 1-3)/fever Acetaminophen (Tylenol) 650 mg RECTAL Q4H PRN PRN Reason: Pain (mild 1-3) Hydrocodone Bitart/Acetaminophen ([place] 325-5 Mg) 1 tab PO Q4H PRN PRN Reason: Pain (moderate 4-6) Last Admin: 04/14/18 16:05 Dose: 1 tab Albuterol/Ipratropium (Duoneb 3.0-0.5 Mg/3 Ml) 3 ml NEB Q4H PRN PRN Reason: Shortness Of Breath/wheezing Bisacodyl (Dulcolax) 5 mg PO DAILY PRN PRN Reason: Constipation Clonidine HCl (Catapres) 0.1 mg PO DAILY [place] Docusate Sodium (Colace) 100 mg PO BID PRN PRN Reason: Constipation Hydralazine HCl (Apresoline) 20 mg IVPUSH Q4H PRN PRN Reason: Hypertension Last Admin: 04/14/18 13:26 Dose: 20 mg Hydromorphone HCl (Dilaudid) 1 mg IVPUSH Q4H PRN PRN Reason: Pain Last Admin: 04/14/18 12:52 Dose: 1 mg Promethazine HCl 12.5 mg/ (Sodium Chloride) 50.5 mls @ 100 mls/hr IV Q6H PRN PRN Reason: Nausea/Vomiting Lactated Ringer's (Ringers, Lactated) 1,000 mls @ 150 mls/hr IV ASDIRECTED [facility] Last Admin: 04/14/18 12:51 Dose: 150 mls/hr Insulin Human Lispro (Humalog) 0 unit SUBCUT Q6H [facility]; Protocol Last Admin: 04/14/18 12:53 Dose: 4 units Lorazepam (Ativan) 2 mg IVPUSH Q4H PRN PRN Reason: Seizures Lorazepam (Ativan) 1 mg IV Q6H PRN PRN Reason: Anxiety Magnesium Hydroxide (Milk Of Magnesia) 30 ml PO Q12H PRN PRN Reason: Constipation Magnesium Sulfate (Pharmacy To Dose - Magnesium Replacement) 1 dose .XX ASDIRECTED [facility] Metoprolol Tartrate (Lopressor) 5 mg IVPUSH Q4H PRN PRN Reason: Tachycardia Miscellaneous Information (Remove Patch) 0 ea TRDERM Q24H [facility] Nicotine (Habitrol) 21 mg TRDERM DAILY PRN PRN Reason: Nicotine Dependence Nitroglycerin (Nitro-Bid 2%) 1 gm TOP Q8H [facility] Last Admin: 04/14/18 16:06 Dose: 1 gm Ondansetron HCl (Zofran) 4 mg IV Q6H PRN PRN Reason: Nausea/Vomiting Liraglutide 1.8 Mg 0 each SUBCUT DAILY [facility] Polyethylene Glycol (Miralax) 17 gm PO DAILY PRN PRN Reason: Constipation Potassium Chloride (Pharmacy To Dose - Potassium Replacement) 1 dose .XX ASDIRECTED [facility] Senna/Docusate Sodium (Senna Plus) 1 tab PO BID PRN PRN Reason: Constipation Sodium Chloride (Saline Flush) 10 ml FLUSH ASDIRECTED PRN PRN Reason: Keep Vein Open Last Admin: 04/14/18 08:26 Dose: 10 ml Temazepam (Restoril) 15 mg PO BEDTIME PRN PRN Reason: Sleep Assessment/Plan Comment:: The patient was seen and examined at bedside in concert with the medical student. The admission assessment and plans were discussed and agreed upon with me. Patient is here for gallstones pancreatitis. He is afebrile and comfortable. His CRP is very minimal. Dr. Marshall has been consulted for further evaluation.
[2018-04-14] MEDS ORDERED: cloNIDine 0.3 MG/Day Transdermal Patch TRDERM ONE (12:38)
[2018-04-14] MEDS: Lactated Ringers 1,000 ML IV SCH ×2 (12:51→19:40)
[2018-04-14] MEDS: HYDROmorphone 1 MG/ML Syringe IVPUSH PRN ×2 (12:52→17:52)
[2018-04-14] MEDS: Insulin Lispro 100 Unit/ML 3 ML KwikPen SUBCUT SCH ×2 (12:53→17:52)
[2018-04-14] MEDS: hydrALAZINE 20 MG/ML SDV IVPUSH PRN ×2 (13:26→22:27)
[2018-04-14] MEDS ORDERED: Nitroglycerin 2% Oint 1 GM UD Packet TOP SCH (14:00)
[2018-04-14] MEDS: Acetaminophen/HYDROcodone 325-5 MG Tab PO PRN ×2 (16:05→22:28)
[2018-04-14] MEDS: Nitroglycerin 2% Oint 1 GM UD Packet TOP SCH (16:06)
[2018-04-14] MEDS ORDERED: Scopolamine 1.5 MG Transdermal Patch TRDERM PRN (18:21)
--- NOTE | 2018-04-14 20:08 | PCM.CONS ---
H&P History of Present Illness - General Date of Service: 04/14/18 Admit Problem/Dx: Admission Diagnosis/Problem Admission Diagnosis/Problem Pancreatitis Source of Information: Patient History Limitations: Reports: No Limitations - History of Present Illness Initial Comments - Free Text/Narative: 57 yo male, developed abdominal pain this morning, about 12+ hours ago. Symptoms initially started with nausea and emesis, which woke the patient from sleep. Pain then developed around the mid-abdomen, radiating to back, then spreading to the lower chest and lower abdomen. Pain became severe, prompting him to come to the ER. In the ER, he underwent cardiac work-up, due h/o ACS, but on work-up was found to have gallstone pancreatitis. He was admitted by Dr. Monte, hospitalist, who consulted me for surgical evaluation. Currently, the patient reports pain is 2/10, but did just receive Dilaudid. He has been using narcotics for pain control throughout the day. Attempt at oral narcotics lead to emesis. He has had multiple 5+ episodes of vomiting since his symptoms started. Chest Pain Score (Numeric/FACES): 6 Abdomen Pain Score (Numeric/FACES): 6 - Related Data Allergies/Adverse Reactions: Allergies Allergy/AdvReac Type Severity Reaction Status Date / Time No Known Allergies Allergy Verified 04/14/18 08:10 Home Medications: Home Meds Aspirin 1 tab PO DAILY 04/14/18 [History] Dapagliflozin/Metformin HCl [Xigduo Xr 5 mg-1,000 mg Tablet] 2 tab PO DAILY [History] Ezetimibe [Zetia] 10 mg PO DAILY 04/14/18 [History] Liraglutide [Victoza 3-Tez] 1.8 mg SQ DAILY 04/14/18 [History] Lisinopril [Zestril] 40 mg PO DAILY 04/14/18 [History] Nebivolol HCl [Bystolic] 10 mg PO DAILY 04/14/18 [History] Pioglitazone [Actos] 30 mg PO DAILY 04/14/18 [History] atorvaSTATin [Lipitor] 40 mg PO DAILY 04/14/18 [History] Past Medical History HEENT History: Reports: None Cardiovascular History: Reports: Hypertension, SC Endocrine/Metabolic History: Reports: Diabetes, Type II - Infectious Disease History Infectious Disease History: Reports: Chicken Pox - Past Surgical History HEENT Surgical History: Reports: ERICA Cardiovascular Surgical History: Reports: Coronary Artery Bypass (7 years ago) Social & Family History - Family History Cardiac: Reports: SC (father) - Tobacco Use Smoking Status *Q: Former Smoker Used Tobacco, but Quit: Yes Month/Year Tobacco Last Used: 08/2005 Second Hand Smoke Exposure: Yes - Caffeine Use Caffeine Use: Reports: Coffee, Energy Drinks, Soda, Tea - Recreational Drug Use Recreational Drug Use: No H&P Review of Systems - Review of Systems: Review Of Systems: See Below General: Reports: No Symptoms HEENT: Reports: No Symptoms Pulmonary: Reports: Cough (mild) Cardiovascular: Reports: No Symptoms Genitourinary: Reports: No Symptoms Musculoskeletal: Reports: No Symptoms Psychiatric: Reports: No Symptoms Neurological: Reports: No Symptoms Exam - Exam Exam: See Below - Vital Signs Vital Signs: Last Vital Signs Temp 36.6 C 04/14/18 16:14 Pulse 92 04/14/18 16:14 Resp 14 04/14/18 16:14 BP 168/82 H 04/14/18 15:37 Pulse Ox 98 04/14/18 16:14 Weight: 89.086 kg - Exam General: Alert, Oriented, Cooperative HEENT: Conjunctiva Clear, Nares Patent. No: Scleral Icterus Neck: Supple. No: Lymphadenopathy Lungs: Clear to Auscultation, Normal Respiratory Effort Cardiovascular: Regular Rate, Regular Rhythm, Normal S1, Normal S2, Other (Well- healed midline anterior chest surgical scar.). No: Systolic Murmur GI/Abdominal Exam: Soft, Tender (Tender throughout the abdomen, especially at the epigastric region. No peritoneal signs. ), Other (Obese.) Extremities: Normal Inspection Skin: Warm, Dry, Intact Psychiatric: Alert, Normal Affect, Normal Mood - Patient Data Lab Results Last 24 hrs: Laboratory Results - last 24 hr 04/14/18 04/14/18 04/14/18 Range/Units 08:30 08:30 08:30 WBC 11.77 H (4.23-9.07) K/mm3 RBC 6.64 H (4.63-6.08) M/mm3 Hgb 18.8 H (13.7-17.5) gm/L Hct 54.4 H (40.1-51.0) % MCV 81.9 (79.0-92.2) fl MCH 28.3 (25.7-32.2) pg MCHC 34.6 (32.2-35.5) g/dl RDW Std Deviation 41.5 (35.1-43.9) fL Plt Count 222 (163-337) K/mm3 MPV 10.2 (9.4-12.3) fl Neut % (Auto) 88.5 H (34.0-67.9) % Lymph % (Auto) 6.5 L (21.8-53.1) % Dawes % (Auto) 4.1 L (5.3-12.2) % Eos % (Auto) 0.1 L (0.8-7.0) Baso % (Auto) 0.3 (0.1-1.2) % Neut # (Auto) 10.43 H (1.78-5.38) K/mm3 Lymph # (Auto) 0.76 L (1.32-3.57) K/mm3 Dawes # (Auto) 0.48 (0.30-0.82) K/mm3 Eos # (Auto) 0.01 L (0.04-0.54) K/mm3 Baso # (Auto) 0.03 (0.01-0.08) K/mm3 Manual Slide Review Abnormal smear Sodium 138 (136-145) mEq/L Potassium 4.3 (3.5-5.1) mEq/L Chloride 102 (98-107) mEq/L Carbon Dioxide 25 (21-32) mEq/L Anion Gap 15.3 H (5-15) BUN 24 H (7-18) mg/dL Creatinine 1.1 (0.7-1.3) mg/dL Est Cr Clr Drug Dosing 63.67 mL/min Estimated GFR (MDRD) > 60 (>60) mL/min BUN/Creatinine Ratio 21.8 H (14-18) Glucose 349 H (74-106) mg/dL POC Glucose (70-105) mg/dL Hemoglobin A1c 8.90 H (4.50-6.20) % Calcium 9.3 (8.5-10.1) mg/dL Total Bilirubin 0.6 (0.2-1.0) mg/dL AST 18 (15-37) U/L ALT 25 (16-63) U/L Alkaline Phosphatase 91 (46-116) U/L Lactate Dehydrogenase (85-227) U/L Troponin I < 0.017 (0.00-0.056) ng/mL C-Reactive Protein (<1.0) mg/dL Total Protein 7.6 (6.4-8.2) g/dl Albumin 4.1 (3.4-5.0) g/dl Globulin 3.5 gm/dL Albumin/Globulin Ratio 1.2 (1-2) Lipase 48795 H (73-393) U/L Urine Color (Yellow) Urine Appearance (Clear) Urine pH (5.0-8.0) Ur Specific [place] (1.005-1.030) Urine Protein (Negative) Urine Glucose (UA) (Negative) Urine Ketones (Negative) Urine Occult Blood (Negative) Urine Nitrite (Negative) Urine Bilirubin (Negative) Urine Urobilinogen (0.2-1.0) Ur Leukocyte Esterase (Negative) Urine RBC (0-5) /hpf Urine WBC (0-5) /hpf Ur Epithelial Cells (0-5) /hpf Urine Bacteria (FEW) /hpf Urine Mucus (FEW) /hpf 04/14/18 04/14/18 04/14/18 Range/Units 08:34 12:08 12:35 WBC (4.23-9.07) K/mm3 RBC (4.63-6.08) M/mm3 Hgb (13.7-17.5) gm/L Hct (40.1-51.0) % MCV (79.0-92.2) fl MCH (25.7-32.2) pg MCHC (32.2-35.5) g/dl RDW Std Deviation (35.1-43.9) fL Plt Count (163-337) K/mm3 MPV (9.4-12.3) fl Neut % (Auto) (34.0-67.9) % Lymph % (Auto) (21.8-53.1) % Dawes % (Auto) (5.3-12.2) % Eos % (Auto) (0.8-7.0) Baso % (Auto) (0.1-1.2) % Neut # (Auto) (1.78-5.38) K/mm3 Lymph # (Auto) (1.32-3.57) K/mm3 Dawes # (Auto) (0.30-0.82) K/mm3 Eos # (Auto) (0.04-0.54) K/mm3 Baso # (Auto) (0.01-0.08) K/mm3 Manual Slide Review Sodium (136-145) mEq/L Potassium (3.5-5.1) mEq/L Chloride (98-107) mEq/L Carbon Dioxide (21-32) mEq/L Anion Gap (5-15) BUN (7-18) mg/dL Creatinine (0.7-1.3) mg/dL Est Cr Clr Drug Dosing mL/min Estimated GFR (MDRD) (>60) mL/min BUN/Creatinine Ratio (14-18) Glucose (74-106) mg/dL POC Glucose 238 H (70-105) mg/dL Hemoglobin A1c (4.50-6.20) % Calcium (8.5-10.1) mg/dL Total Bilirubin (0.2-1.0) mg/dL AST (15-37) U/L ALT (16-63) U/L Alkaline Phosphatase (46-116) U/L Lactate Dehydrogenase (85-227) U/L Troponin I (0.00-0.056) ng/mL C-Reactive Protein 2.1 H* (<1.0) mg/dL Total Protein (6.4-8.2) g/dl Albumin (3.4-5.0) g/dl Globulin gm/dL Albumin/Globulin Ratio (1-2) Lipase (73-393) U/L Urine Color Yellow (Yellow) Urine Appearance Slt cloudy H (Clear) Urine pH 6.0 (5.0-8.0) Ur Specific [place] 1.015 (1.005-1.030) Urine Protein 2+ H (Negative) Urine Glucose (UA) 2+ H (Negative) Urine Ketones Trace H (Negative) Urine Occult Blood 1+ H (Negative) Urine Nitrite Negative (Negative) Urine Bilirubin Negative (Negative) Urine Urobilinogen 0.2 (0.2-1.0) Ur Leukocyte Esterase Negative (Negative) Urine RBC 0-5 (0-5) /hpf Urine WBC 0-5 (0-5) /hpf Ur Epithelial Cells 0-5 (0-5) /hpf Urine Bacteria Not seen (FEW) /hpf Urine Mucus Not seen (FEW) /hpf 04/14/18 04/14/18 Range/Units 12:35 16:56 WBC (4.23-9.07) K/mm3 RBC (4.63-6.08) M/mm3 Hgb (13.7-17.5) gm/L Hct (40.1-51.0) % MCV (79.0-92.2) fl MCH (25.7-32.2) pg MCHC (32.2-35.5) g/dl RDW Std Deviation (35.1-43.9) fL Plt Count (163-337) K/mm3 MPV (9.4-12.3) fl Neut % (Auto) (34.0-67.9) % Lymph % (Auto) (21.8-53.1) % Dawes % (Auto) (5.3-12.2) % Eos % (Auto) (0.8-7.0) Baso % (Auto) (0.1-1.2) % Neut # (Auto) (1.78-5.38) K/mm3 Lymph # (Auto) (1.32-3.57) K/mm3 Dawes # (Auto) (0.30-0.82) K/mm3 Eos # (Auto) (0.04-0.54) K/mm3 Baso # (Auto) (0.01-0.08) K/mm3 Manual Slide Review Sodium (136-145) mEq/L Potassium (3.5-5.1) mEq/L Chloride (98-107) mEq/L Carbon Dioxide (21-32) mEq/L Anion Gap (5-15) BUN (7-18) mg/dL Creatinine (0.7-1.3) mg/dL Est Cr Clr Drug Dosing mL/min Estimated GFR (MDRD) (>60) mL/min BUN/Creatinine Ratio (14-18) Glucose (74-106) mg/dL POC Glucose 185 H (70-105) mg/dL Hemoglobin A1c (4.50-6.20) % Calcium (8.5-10.1) mg/dL Total Bilirubin (0.2-1.0) mg/dL AST (15-37) U/L ALT (16-63) U/L Alkaline Phosphatase (46-116) U/L Lactate Dehydrogenase 235 H (85-227) U/L Troponin I (0.00-0.056) ng/mL C-Reactive Protein (<1.0) mg/dL Total Protein (6.4-8.2) g/dl Albumin (3.4-5.0) g/dl Globulin gm/dL Albumin/Globulin Ratio (1-2) Lipase (73-393) U/L Urine Color (Yellow) Urine Appearance (Clear) Urine pH (5.0-8.0) Ur Specific [place] (1.005-1.030) Urine Protein (Negative) Urine Glucose (UA) (Negative) Urine Ketones (Negative) Urine Occult Blood (Negative) Urine Nitrite (Negative) Urine Bilirubin (Negative) Urine Urobilinogen (0.2-1.0) Ur Leukocyte Esterase (Negative) Urine RBC (0-5) /hpf Urine WBC (0-5) /hpf Ur Epithelial Cells (0-5) /hpf Urine Bacteria (FEW) /hpf Urine Mucus (FEW) /hpf Result Diagrams: 04/14/18 08:30 04/14/18 08:30 Consult PN Assessment/Plan (1) Gallstone pancreatitis SNOMED Code(s): 81071366 Code(s): K85.10 - BILIARY ACUTE PANCREATITIS WITHOUT NECROSIS OR INFECTION Current Visit: Yes Problem List Initiated/Reviewed/Updated: Yes Plan: 57 yo male, history of multiple medical problems, including ACS s/p 4vCABG (7 years ago), HTN, DM2 (non-insulin dependent), obesity (BMI 33), presents with gallstone pancreatitis. Lipase is elevated at >15,000. Based on Jennie's criteria, patient currently with two points (based age >55 and BS>200). Ultrasound radiology report and actual images were reviewed. Multiple small gallstones noted within the gallbladder. CBD is upper limit at 7 mm. Tbili normal, Alk phos normal, and AST/ALT wnl. - The patient's diagnosis and management plan were discussed with the patient in detail. Also discussed with his daughter (who is an RN) and , by phone. - Explained the need for gallbladder removal once his pancreatitis has resolved. This will be required to prevent future complications of gallstone disease. - Will plan for laparoscopic cholecystectomy with IOC, possible open, during this hospitalization. Indications, risks, and benefits were discussed with the patient in detail. Risks include bleeding, infection, damage to surrounding structures, need for further procedures, DVT/PE, SC, CVA, and . - Patient has had significant elevation on BP on admission (>200/100's), requiring labetolol in the ER. BP better controlled currently, on regimen of hydralazine and nitroglycerin topical. Appreciate primary management by hospitalist team, Dr. Monte. - Given cardiac history, will ensure perioperative beta-blockade and ASA. I did discuss with the patient and his regarding potential for transfer to higher level of care, given patient's medical history. His expressed concerns regarding potential cardiovascular complications. We will re-assess the patient's clinical status in the morning. Ricci Lopez M.D., F.A.C.S. General Surgery Pager: [phone]
[2018-04-14] MEDS ORDERED: Temazepam 15 MG Cap PO PRN (21:00)
[2018-04-15] MEDS: Nitroglycerin 2% Oint 1 GM UD Packet TOP SCH ×2 (00:38→09:01)
[2018-04-15] MEDS: Insulin Lispro 100 Unit/ML 3 ML KwikPen SUBCUT SCH ×3 (00:45→12:22)
[2018-04-15] MEDS: Lactated Ringers 1,000 ML IV SCH ×2 (02:22→09:00)
[2018-04-15] MEDS: hydrALAZINE 20 MG/ML SDV IVPUSH PRN (05:48)
[2018-04-15] MEDS: Acetaminophen/HYDROcodone 325-5 MG Tab PO PRN ×2 (05:48→11:04)
[2018-04-15] MEDS ORDERED: cloNIDine 0.1 MG Tab PO SCH (09:00)
--- NOTE | 2018-04-15 09:44 | PCM.DCSUM1 ---
Discharge Summary - Hospital Course HPI Initial Comments: 57 y/o male arrived to ER 04/14 via [facility]. Upon waking up this morning he was experiencing nausea and vomiting followed by epigastric and RUQ pain, which radiated to his chest. He also had some dyspnea and diarrhea, but denied dysuria, fever, chills, and cough. He had an ID and CABG 6 years ago. ER workup included EKG which showed NSR and no acute changes. CXR was benign. Abdominal US was significant for gallstones and echogenic liver but negative for gallbladder wall thickening or any other abnormalities on RUQ. Labs ordered in the ER showed WBC elevated at 11.77, Hgb elevated at 18.8, anion gap elevated at 15.3, glucose elevated at 349, negative troponin, and lipase very elevated at 15,283. His UA shows no UTI. His BP was high at 202/100. He does have hypertension but vomited up his BP medications today. He was given a dose of labetalol in the ER. It was determined the patient has gallbladder pancreatitis that warranted admission to the hospital for further management. Diagnosis: Stroke: No - Discharge Data Discharge Date: 04/15/18 (Admit: 04/14/18) Discharge Disposition: DC/Tfer to Acute Hospital 02 Condition: Fair - Discharge Diagnosis/Problem(s) (1) Atypical chest pain SNOMED Code(s): 839594037 ICD Code: R07.89 - OTHER CHEST PAIN Status: Acute Current Visit: Yes (2) Diabetes mellitus SNOMED Code(s): 55992256 ICD Code: E11.9 - TYPE 2 DIABETES MELLITUS WITHOUT COMPLICATIONS Status: Acute Current Visit: Yes Qualifiers: Diabetes mellitus type: type 2 (3) Gallstone pancreatitis SNOMED Code(s): 76065666 ICD Code: K85.10 - BILIARY ACUTE PANCREATITIS WITHOUT NECROSIS OR INFECTION Status: Acute Priority: High Current Visit: Yes (4) Gallstones SNOMED Code(s): 431176277 ICD Code: K80.20 - CALCULUS OF GALLBLADDER W/O CHOLECYSTITIS W/O OBSTRUCTION Status: Acute Priority: High Current Visit: Yes (5) Hypertension SNOMED Code(s): 99697454 ICD Code: I10 - ESSENTIAL (PRIMARY) HYPERTENSION Status: Acute Priority: High Current Visit: Yes Qualifiers: Hypertension type: essential hypertension Qualified Code(s): I10 - Essential (primary) hypertension (6) Pancreatitis SNOMED Code(s): 93382003 ICD Code: K85.90 - ACUTE PANCREATITIS WITHOUT NECROSIS OR INFECTION, UNSP Status: Acute Priority: High Current Visit: Yes Qualifiers: Chronicity: acute Pancreatitis type: biliary Acute pancreatitis complication: no infection or necrosis Qualified Code(s): K85.10 - Biliary acute pancreatitis without necrosis or infection - Patient Summary/Data Consults: Consultations 04/14/18 12:09 Consult to Physician [CONS] Routine Labs Pending at D/C: None Hospital Course: I/P: Acute: Gallstone pancreatitis * RUQ/epigastric pain associated with N/V/D and SOB * ER work-up * Lipase elevated at 15,283 * US showed gallstones, echogenic liver * EKG unremarkable and troponin negative * Risk factors * No previous history of this * Denies alcohol use * On victoza with pancreatitis as a side effect - hold victoza for now * Supportive care and IVF * IVF - lactated ringers * Pain medications PRN * Zofran PRN for N/V * Jennie's criteria * WBC > 16K --> NO (11.77) * Age > 55 --> YES, age 57 * Glucose > 200 --> YES, 349 * AST > 250 --> NO (18) * LDH > 350 --> NO (235) * 2 points = severe pancreatitis unlikely with 1% predicted mortality * Will re-assess in 48 hours * Consult surgery for further work-up * NPO with ice chips only Malignant hypertension, improved to resolved * Blood pressure was 202/100 in the ER - given dose of IV labetalol * 216/98 upon admission - treating with metoprolol, hydralazine, and clonidine * He vomited his blood pressure medication this AM; could also be elevated due to pain * Continue to monitor Diabetes mellitus * Glucose was 349 in ER, now 238 * HbgA1c 8.9 * Hold home diabetes medications for now; use insulin for blood sugar control Chronic: HTN Type II DM Hx/o ID with quadruple bypass Overall Simba's pain did improve slightly. His family was very concerned, given his co-morbid conditions. The request was made to transfer the patient to [place] so he can be near cardiology. He does have a significant cardiac history with quadruple bypass 6-7 years ago. He is also a diabetic. Dr. Avalos, general surgeon was consulted and agreed with the plan to transfer him as he has significant gallstones present. He has been NPO with ice chips since admission. He has been receiving IV fluids and pain medications. Pain has been controlled with dilaudid. His EKG and troponin were negative. Dr. Marshall contacted Dr. Sr at in [place] and he accepted transfer. He is recommending Zosyn be started and this will be given prior to transfer. His blood pressures have been very high. BP was 216/98 on admission. Labetalol had been given in ED prior to admission with minimal to no response. Hydralazine and nitroglycerin paste were given with good response. Nitroglycerine past was recommended by pharmacy. BP prior to transfer was controlled at 137/67. Magnesium was low at 1.7 prior to transfer and was supplemented. O2 saturations have been low and he is on 1L currently via [place]. This will be titrated to keep above 92%. He will be transferred via ground ALS ambulance with cardiac rehabilitation program director. He is stable. - Patient Instructions Diet: NPO - Discharge Plan *PRESCRIPTION DRUG MONITORING PROGRAM REVIEWED*: No *COPY OF PRESCRIPTION DRUG MONITORING REPORT IN PATIENT PONCE: No Home Medications: Home Meds Aspirin 1 tab PO DAILY 04/14/18 [History] Dapagliflozin/Metformin HCl [Xigduo Xr 5 mg-1,000 mg Tablet] 2 tab PO DAILY [History] Ezetimibe [Zetia] 10 mg PO DAILY 04/14/18 [History] Liraglutide [Victoza 3-Tez] 1.8 mg SQ DAILY 04/14/18 [History] Lisinopril [Zestril] 40 mg PO DAILY 04/14/18 [History] Nebivolol HCl [Bystolic] 10 mg PO DAILY 04/14/18 [History] Pioglitazone [Actos] 30 mg PO DAILY 04/14/18 [History] atorvaSTATin [Lipitor] 40 mg PO DAILY 04/14/18 [History] Forms: ED Department Discharge Referrals: PCP,Not In Area [Primary Care Provider] - - Discharge Summary/Plan Comment DC Time >30 min.: Yes (45 mins ) - General Info Date of Service: 04/15/18 Admission Dx/Problem (Free Text: Admission Diagnosis/Problem Admission Diagnosis/Problem Pancreatitis Subjective Update: In to see Simba. He is lying in bed. He feels good. Him and his family are concerned about his cardiac history and need for surgery. They would like transfer to [place]. Dr. Marshall contacted and agrees that given the patients co- morbid conditions, he would be better served at a higher level of care. Dr. Marshall arranges transfer. He will be transferred via [facility] ground ambulance to [facility]. Functional Status: Reports: Pain Controlled, Tolerating Diet, Ambulating, Urinating. Denies: New Symptoms - Review of Systems General: Reports: No Symptoms, Fatigue. Denies: Fever, Weakness, Malaise HEENT: Reports: No Symptoms. Denies: Sore Throat Pulmonary: Reports: No Symptoms. Denies: Shortness of Breath, Cough, Sputum, Wheezing Cardiovascular: Reports: No Symptoms. Denies: Chest Pain, Dyspnea on Exertion, Edema, Lightheadedness Gastrointestinal: Reports: Abdominal Pain (epigastric radiating into all other quadrants - improved ). Denies: Constipation, Diarrhea, Nausea, Vomiting Genitourinary: Reports: No Symptoms Musculoskeletal: Reports: No Symptoms Skin: Reports: No Symptoms Neurological: Reports: No Symptoms. Denies: Confusion, Dizziness, Numbness, Tingling, Difficulty Walking, Weakness, Gait Disturbance Psychiatric: Reports: No Symptoms. Denies: Confusion - Patient Data Vitals - Most Recent: Last Vital Signs Temp 98.2 F 04/15/18 05:37 Pulse 90 04/15/18 05:37 Resp 18 04/15/18 05:37 BP 137/67 04/15/18 09:00 Pulse Ox 88 L 04/15/18 05:37 Weight - Most Recent: 196 lb 6.4 oz I&O - Last 24 hours: Intake & Output 04/14/18 04/15/18 04/15/18 22:59 06:59 14:59 Intake Total 780 60 Output Total 500 900 Balance 280 -840 Lab Results - Last 24 hrs: Laboratory Results - last 24 hr 04/14/18 04/14/18 04/14/18 Range/Units 08:30 12:08 12:35 WBC (4.23-9.07) K/mm3 RBC (4.63-6.08) M/mm3 Hgb (13.7-17.5) gm/L Hct (40.1-51.0) % MCV (79.0-92.2) fl MCH (25.7-32.2) pg MCHC (32.2-35.5) g/dl RDW Std Deviation (35.1-43.9) fL Plt Count (163-337) K/mm3 MPV (9.4-12.3) fl Neut % (Auto) (34.0-67.9) % Lymph % (Auto) (21.8-53.1) % [place] % (Auto) (5.3-12.2) % Eos % (Auto) (0.8-7.0) Baso % (Auto) (0.1-1.2) % Neut # (Auto) (1.78-5.38) K/mm3 Lymph # (Auto) (1.32-3.57) K/mm3 [place] # (Auto) (0.30-0.82) K/mm3 Eos # (Auto) (0.04-0.54) K/mm3 Baso # (Auto) (0.01-0.08) K/mm3 Manual Slide Review Sodium (136-145) mEq/L Potassium (3.5-5.1) mEq/L Chloride (98-107) mEq/L Carbon Dioxide (21-32) mEq/L Anion Gap (5-15) BUN (7-18) mg/dL Creatinine (0.7-1.3) mg/dL Est Cr Clr Drug Dosing mL/min Estimated GFR (MDRD) (>60) mL/min BUN/Creatinine Ratio (14-18) Glucose (74-106) mg/dL POC Glucose 238 H (70-105) mg/dL Hemoglobin A1c 8.90 H (4.50-6.20) % Calcium (8.5-10.1) mg/dL Magnesium (1.8-2.4) mg/dl Lactate Dehydrogenase (85-227) U/L C-Reactive Protein 2.1 H* (<1.0) mg/dL 04/14/18 04/14/18 04/14/18 Range/Units 12:35 16:56 22:17 WBC (4.23-9.07) K/mm3 RBC (4.63-6.08) M/mm3 Hgb (13.7-17.5) gm/L Hct (40.1-51.0) % MCV (79.0-92.2) fl MCH (25.7-32.2) pg MCHC (32.2-35.5) g/dl RDW Std Deviation (35.1-43.9) fL Plt Count (163-337) K/mm3 MPV (9.4-12.3) fl Neut % (Auto) (34.0-67.9) % Lymph % (Auto) (21.8-53.1) % [place] % (Auto) (5.3-12.2) % Eos % (Auto) (0.8-7.0) Baso % (Auto) (0.1-1.2) % Neut # (Auto) (1.78-5.38) K/mm3 Lymph # (Auto) (1.32-3.57) K/mm3 [place] # (Auto) (0.30-0.82) K/mm3 Eos # (Auto) (0.04-0.54) K/mm3 Baso # (Auto) (0.01-0.08) K/mm3 Manual Slide Review Sodium (136-145) mEq/L Potassium (3.5-5.1) mEq/L Chloride (98-107) mEq/L Carbon Dioxide (21-32) mEq/L Anion Gap (5-15) BUN (7-18) mg/dL Creatinine (0.7-1.3) mg/dL Est Cr Clr Drug Dosing mL/min Estimated GFR (MDRD) (>60) mL/min BUN/Creatinine Ratio (14-18) Glucose (74-106) mg/dL POC Glucose 185 H 218 H (70-105) mg/dL Hemoglobin A1c (4.50-6.20) % Calcium (8.5-10.1) mg/dL Magnesium (1.8-2.4) mg/dl Lactate Dehydrogenase 235 H (85-227) U/L C-Reactive Protein (<1.0) mg/dL 04/15/18 04/15/18 04/15/18 Range/Units 00:44 05:39 06:07 WBC 16.44 H (4.23-9.07) K/mm3 RBC 6.16 H (4.63-6.08) M/mm3 Hgb 17.1 (13.7-17.5) gm/L Hct 50.8 (40.1-51.0) % MCV 82.5 (79.0-92.2) fl MCH 27.8 (25.7-32.2) pg MCHC 33.7 (32.2-35.5) g/dl RDW Std Deviation 43.6 (35.1-43.9) fL Plt Count 253 (163-337) K/mm3 MPV 10.1 (9.4-12.3) fl Neut % (Auto) 88.1 H (34.0-67.9) % Lymph % (Auto) 4.9 L (21.8-53.1) % [place] % (Auto) 6.6 (5.3-12.2) % Eos % (Auto) 0.1 L (0.8-7.0) Baso % (Auto) 0.1 (0.1-1.2) % Neut # (Auto) 14.49 H (1.78-5.38) K/mm3 Lymph # (Auto) 0.81 L (1.32-3.57) K/mm3 [place] # (Auto) 1.08 H (0.30-0.82) K/mm3 Eos # (Auto) 0.01 L (0.04-0.54) K/mm3 Baso # (Auto) 0.01 (0.01-0.08) K/mm3 Manual Slide Review Abnormal smear Sodium (136-145) mEq/L Potassium (3.5-5.1) mEq/L Chloride (98-107) mEq/L Carbon Dioxide (21-32) mEq/L Anion Gap (5-15) BUN (7-18) mg/dL Creatinine (0.7-1.3) mg/dL Est Cr Clr Drug Dosing mL/min Estimated GFR (MDRD) (>60) mL/min BUN/Creatinine Ratio (14-18) Glucose (74-106) mg/dL POC Glucose 188 H 194 H (70-105) mg/dL Hemoglobin A1c (4.50-6.20) % Calcium (8.5-10.1) mg/dL Magnesium (1.8-2.4) mg/dl Lactate Dehydrogenase (85-227) U/L C-Reactive Protein (<1.0) mg/dL 04/15/18 Range/Units 06:07 WBC (4.23-9.07) K/mm3 RBC (4.63-6.08) M/mm3 Hgb (13.7-17.5) gm/L Hct (40.1-51.0) % MCV (79.0-92.2) fl MCH (25.7-32.2) pg MCHC (32.2-35.5) g/dl RDW Std Deviation (35.1-43.9) fL Plt Count (163-337) K/mm3 MPV (9.4-12.3) fl Neut % (Auto) (34.0-67.9) % Lymph % (Auto) (21.8-53.1) % [place] % (Auto) (5.3-12.2) % Eos % (Auto) (0.8-7.0) Baso % (Auto) (0.1-1.2) % Neut # (Auto) (1.78-5.38) K/mm3 Lymph # (Auto) (1.32-3.57) K/mm3 [place] # (Auto) (0.30-0.82) K/mm3 Eos # (Auto) (0.04-0.54) K/mm3 Baso # (Auto) (0.01-0.08) K/mm3 Manual Slide Review Sodium 139 (136-145) mEq/L Potassium 3.7 (3.5-5.1) mEq/L Chloride 102 (98-107) mEq/L Carbon Dioxide 26 (21-32) mEq/L Anion Gap 14.7 (5-15) BUN 20 H (7-18) mg/dL Creatinine 0.9 (0.7-1.3) mg/dL Est Cr Clr Drug Dosing 77.82 mL/min Estimated GFR (MDRD) > 60 (>60) mL/min BUN/Creatinine Ratio 22.2 H (14-18) Glucose 200 H (74-106) mg/dL POC Glucose (70-105) mg/dL Hemoglobin A1c (4.50-6.20) % Calcium 9.1 (8.5-10.1) mg/dL Magnesium 1.7 L (1.8-2.4) mg/dl Lactate Dehydrogenase (85-227) U/L C-Reactive Protein 22.3 H* (<1.0) mg/dL Med Orders - Current: Current Medications Acetaminophen (Tylenol) 650 mg PO Q4H PRN PRN Reason: Pain (Mild 1-3)/fever Acetaminophen (Tylenol) 650 mg RECTAL Q4H PRN PRN Reason: Pain (mild 1-3) Hydrocodone Bitart/Acetaminophen ([place] 325-5 Mg) 1 tab PO Q4H PRN PRN Reason: Pain (moderate 4-6) Last Admin: 04/15/18 05:48 Dose: 1 tab Albuterol/Ipratropium (Duoneb 3.0-0.5 Mg/3 Ml) 3 ml NEB Q4H PRN PRN Reason: Shortness Of Breath/wheezing Bisacodyl (Dulcolax) 5 mg PO DAILY PRN PRN Reason: Constipation Clonidine HCl (Catapres) 0.1 mg PO DAILY [facility] Last Admin: 04/15/18 09:00 Dose: 0.1 mg Docusate Sodium (Colace) 100 mg PO BID PRN PRN Reason: Constipation Hydralazine HCl (Apresoline) 20 mg IVPUSH Q4H PRN PRN Reason: Hypertension Last Admin: 04/15/18 05:48 Dose: 20 mg Hydromorphone HCl (Dilaudid) 1 mg IVPUSH Q4H PRN PRN Reason: Pain Last Admin: 04/14/18 17:52 Dose: 1 mg Promethazine HCl 12.5 mg/ (Sodium Chloride) 50.5 mls @ 100 mls/hr IV Q6H PRN PRN Reason: Nausea/Vomiting Lactated Ringer's (Ringers, Lactated) 1,000 mls @ 150 mls/hr IV ASDIRECTED [place] Last Admin: 04/15/18 09:00 Dose: 150 mls/hr Piperacillin Sod/Tazobactam (Sod 4.5 gm/ Sodium Chloride) 100 mls @ 25 mls/hr IV Q8H [place] Insulin Human Lispro (Humalog) 0 unit SUBCUT Q6H [facility]; Protocol Last Admin: 04/15/18 05:40 Dose: 2 units Lorazepam (Ativan) 2 mg IVPUSH Q4H PRN PRN Reason: Seizures Lorazepam (Ativan) 1 mg IV Q6H PRN PRN Reason: Anxiety Magnesium Hydroxide (Milk Of Magnesia) 30 ml PO Q12H PRN PRN Reason: Constipation Magnesium Sulfate (Pharmacy To Dose - Magnesium Replacement) 1 dose .XX ASDIRECTED [facility] Metoprolol Tartrate (Lopressor) 5 mg IVPUSH Q4H PRN PRN Reason: Tachycardia Miscellaneous Information (Remove Patch) 0 ea TRDERM Q24H [place] Miscellaneous Information (Remove Patch) 1 ea TRDERM Q72H [facility] Nicotine (Habitrol) 21 mg TRDERM DAILY PRN PRN Reason: Nicotine Dependence Nitroglycerin (Nitro-Bid 2%) 1 gm TOP Q8H [facility] Last Admin: 04/15/18 09:01 Dose: 1 gm Ondansetron HCl (Zofran) 4 mg IV Q6H PRN PRN Reason: Nausea/Vomiting Last Admin: 04/14/18 18:26 Dose: 4 mg Liraglutide 1.8 Mg 0 each SUBCUT DAILY [facility] Last Admin: 04/15/18 09:01 Dose: Not Given Polyethylene Glycol (Miralax) 17 gm PO DAILY PRN PRN Reason: Constipation Potassium Chloride (Pharmacy To Dose - Potassium Replacement) 1 dose .XX ASDIRECTED [facility] Scopolamine (Transderm-Scop) 1.5 mg TRDERM Q72H PRN PRN Reason: Nausea/Vomiting Senna/Docusate Sodium (Senna Plus) 1 tab PO BID PRN PRN Reason: Constipation Sodium Chloride (Saline Flush) 10 ml FLUSH ASDIRECTED PRN PRN Reason: Keep Vein Open Last Admin: 04/14/18 08:26 Dose: 10 ml Temazepam (Restoril) 15 mg PO BEDTIME PRN PRN Reason: Sleep Discontinued Medications Clonidine HCl (Catapres-Tts 3) 0.3 mg TRDERM ONETIME ONE Stop: 04/14/18 12:39 Last Admin: 04/14/18 13:03 Dose: 0.3 mg Hydromorphone HCl (Dilaudid) 0.5 mg IVPUSH ONETIME ONE Stop: 04/14/18 08:20 Last Admin: 04/14/18 08:26 Dose: 0.5 mg Hydromorphone HCl (Dilaudid) 0.5 mg IVPUSH ONETIME ONE Stop: 04/14/18 09:21 Last Admin: 04/14/18 09:27 Dose: 0.5 mg Sodium Chloride (Normal Saline) 1,000 mls @ 1,000 mls/hr IV .BOLUS STA Stop: 04/14/18 09:16 Last Admin: 04/14/18 08:27 Dose: 1,000 mls/hr Labetalol HCl (Normodyne) 20 mg IVPUSH ONETIME ONE; Protocol Stop: 04/14/18 09:47 Last Admin: 04/14/18 09:49 Dose: 20 mg Labetalol HCl (Normodyne) 20 mg IVPUSH ONETIME ONE; Protocol Stop: 04/14/18 10:50 Last Admin: 04/14/18 10:51 Dose: 20 mg Miscellaneous Information (Remove Patch) 0 ea TRDERM ONETIME ONE Stop: 04/14/18 14:01 Last Admin: 04/14/18 15:27 Dose: Not Given - Exam Quality Assessment: Reports: Supplemental Oxygen, DVT Prophylaxis General: Reports: Alert, Oriented, Cooperative, No Acute Distress HEENT: Reports: Pupils Equal, Pupils Reactive, EOMI, Mucous Membr. Moist/[place] Neck: Reports: Supple, Trachea Midline, No JVD Lungs: Reports: Clear to Auscultation, Normal Respiratory Effort Cardiovascular: Reports: Regular Rate, Regular Rhythm GI/Abdominal Exam: Soft, No Distention, Guarding, Tender (epigastric priarily ) , Abnormal Bowel Sounds (Male) Exam: Deferred Rectal (Males) Exam: Deferred Back Exam: Reports: Normal Inspection, Full Range of Motion Extremities: Normal Inspection, Normal Range of Motion, Non-Tender, No Pedal Edema, Normal Capillary Refill Skin: Reports: Warm, Dry, Intact Neurological: Reports: No New Focal Deficit Psy/Mental Status: Reports: Alert, Normal Affect, Normal Mood
--- NOTE | 2018-04-15 09:52 | PCM.CONSN ---
- General Info Date of Service: 04/15/18 Subjective Update: NO acute events overnight. Patient reports pain has improved somewhat, but continues to have abdominal pain, especially at the mid-epigastric region. He and his expressed interest in transferring to [facility] in [place]. - Patient Data Vitals - Most Recent: Last Vital Signs Temp 36.8 C 04/15/18 05:37 Pulse 90 04/15/18 05:37 Resp 18 04/15/18 05:37 BP 137/67 04/15/18 09:00 Pulse Ox 88 L 04/15/18 05:37 Weight - Most Recent: 89.086 kg I&O - Last 24 Hours: Intake & Output 04/14/18 04/15/18 04/15/18 22:59 06:59 14:59 Intake Total 780 60 Output Total 500 900 Balance 280 -840 Lab Results Last 24 Hours: Laboratory Results - last 24 hr 04/14/18 04/14/18 04/14/18 Range/Units 08:30 12:08 12:35 WBC (4.23-9.07) K/mm3 RBC (4.63-6.08) M/mm3 Hgb (13.7-17.5) gm/L Hct (40.1-51.0) % MCV (79.0-92.2) fl MCH (25.7-32.2) pg MCHC (32.2-35.5) g/dl RDW Std Deviation (35.1-43.9) fL Plt Count (163-337) K/mm3 MPV (9.4-12.3) fl Neut % (Auto) (34.0-67.9) % Lymph % (Auto) (21.8-53.1) % Piute % (Auto) (5.3-12.2) % Eos % (Auto) (0.8-7.0) Baso % (Auto) (0.1-1.2) % Neut # (Auto) (1.78-5.38) K/mm3 Lymph # (Auto) (1.32-3.57) K/mm3 Piute # (Auto) (0.30-0.82) K/mm3 Eos # (Auto) (0.04-0.54) K/mm3 Baso # (Auto) (0.01-0.08) K/mm3 Manual Slide Review Sodium (136-145) mEq/L Potassium (3.5-5.1) mEq/L Chloride (98-107) mEq/L Carbon Dioxide (21-32) mEq/L Anion Gap (5-15) BUN (7-18) mg/dL Creatinine (0.7-1.3) mg/dL Est Cr Clr Drug Dosing mL/min Estimated GFR (MDRD) (>60) mL/min BUN/Creatinine Ratio (14-18) Glucose (74-106) mg/dL POC Glucose 238 H (70-105) mg/dL Hemoglobin A1c 8.90 H (4.50-6.20) % Calcium (8.5-10.1) mg/dL Magnesium (1.8-2.4) mg/dl Lactate Dehydrogenase (85-227) U/L C-Reactive Protein 2.1 H* (<1.0) mg/dL 04/14/18 04/14/18 04/14/18 Range/Units 12:35 16:56 22:17 WBC (4.23-9.07) K/mm3 RBC (4.63-6.08) M/mm3 Hgb (13.7-17.5) gm/L Hct (40.1-51.0) % MCV (79.0-92.2) fl MCH (25.7-32.2) pg MCHC (32.2-35.5) g/dl RDW Std Deviation (35.1-43.9) fL Plt Count (163-337) K/mm3 MPV (9.4-12.3) fl Neut % (Auto) (34.0-67.9) % Lymph % (Auto) (21.8-53.1) % Piute % (Auto) (5.3-12.2) % Eos % (Auto) (0.8-7.0) Baso % (Auto) (0.1-1.2) % Neut # (Auto) (1.78-5.38) K/mm3 Lymph # (Auto) (1.32-3.57) K/mm3 Piute # (Auto) (0.30-0.82) K/mm3 Eos # (Auto) (0.04-0.54) K/mm3 Baso # (Auto) (0.01-0.08) K/mm3 Manual Slide Review Sodium (136-145) mEq/L Potassium (3.5-5.1) mEq/L Chloride (98-107) mEq/L Carbon Dioxide (21-32) mEq/L Anion Gap (5-15) BUN (7-18) mg/dL Creatinine (0.7-1.3) mg/dL Est Cr Clr Drug Dosing mL/min Estimated GFR (MDRD) (>60) mL/min BUN/Creatinine Ratio (14-18) Glucose (74-106) mg/dL POC Glucose 185 H 218 H (70-105) mg/dL Hemoglobin A1c (4.50-6.20) % Calcium (8.5-10.1) mg/dL Magnesium (1.8-2.4) mg/dl Lactate Dehydrogenase 235 H (85-227) U/L C-Reactive Protein (<1.0) mg/dL 04/15/18 04/15/18 04/15/18 Range/Units 00:44 05:39 06:07 WBC 16.44 H (4.23-9.07) K/mm3 RBC 6.16 H (4.63-6.08) M/mm3 Hgb 17.1 (13.7-17.5) gm/L Hct 50.8 (40.1-51.0) % MCV 82.5 (79.0-92.2) fl MCH 27.8 (25.7-32.2) pg MCHC 33.7 (32.2-35.5) g/dl RDW Std Deviation 43.6 (35.1-43.9) fL Plt Count 253 (163-337) K/mm3 MPV 10.1 (9.4-12.3) fl Neut % (Auto) 88.1 H (34.0-67.9) % Lymph % (Auto) 4.9 L (21.8-53.1) % Piute % (Auto) 6.6 (5.3-12.2) % Eos % (Auto) 0.1 L (0.8-7.0) Baso % (Auto) 0.1 (0.1-1.2) % Neut # (Auto) 14.49 H (1.78-5.38) K/mm3 Lymph # (Auto) 0.81 L (1.32-3.57) K/mm3 Piute # (Auto) 1.08 H (0.30-0.82) K/mm3 Eos # (Auto) 0.01 L (0.04-0.54) K/mm3 Baso # (Auto) 0.01 (0.01-0.08) K/mm3 Manual Slide Review Abnormal smear Sodium (136-145) mEq/L Potassium (3.5-5.1) mEq/L Chloride (98-107) mEq/L Carbon Dioxide (21-32) mEq/L Anion Gap (5-15) BUN (7-18) mg/dL Creatinine (0.7-1.3) mg/dL Est Cr Clr Drug Dosing mL/min Estimated GFR (MDRD) (>60) mL/min BUN/Creatinine Ratio (14-18) Glucose (74-106) mg/dL POC Glucose 188 H 194 H (70-105) mg/dL Hemoglobin A1c (4.50-6.20) % Calcium (8.5-10.1) mg/dL Magnesium (1.8-2.4) mg/dl Lactate Dehydrogenase (85-227) U/L C-Reactive Protein (<1.0) mg/dL 04/15/18 Range/Units 06:07 WBC (4.23-9.07) K/mm3 RBC (4.63-6.08) M/mm3 Hgb (13.7-17.5) gm/L Hct (40.1-51.0) % MCV (79.0-92.2) fl MCH (25.7-32.2) pg MCHC (32.2-35.5) g/dl RDW Std Deviation (35.1-43.9) fL Plt Count (163-337) K/mm3 MPV (9.4-12.3) fl Neut % (Auto) (34.0-67.9) % Lymph % (Auto) (21.8-53.1) % Piute % (Auto) (5.3-12.2) % Eos % (Auto) (0.8-7.0) Baso % (Auto) (0.1-1.2) % Neut # (Auto) (1.78-5.38) K/mm3 Lymph # (Auto) (1.32-3.57) K/mm3 Piute # (Auto) (0.30-0.82) K/mm3 Eos # (Auto) (0.04-0.54) K/mm3 Baso # (Auto) (0.01-0.08) K/mm3 Manual Slide Review Sodium 139 (136-145) mEq/L Potassium 3.7 (3.5-5.1) mEq/L Chloride 102 (98-107) mEq/L Carbon Dioxide 26 (21-32) mEq/L Anion Gap 14.7 (5-15) BUN 20 H (7-18) mg/dL Creatinine 0.9 (0.7-1.3) mg/dL Est Cr Clr Drug Dosing 77.82 mL/min Estimated GFR (MDRD) > 60 (>60) mL/min BUN/Creatinine Ratio 22.2 H (14-18) Glucose 200 H (74-106) mg/dL POC Glucose (70-105) mg/dL Hemoglobin A1c (4.50-6.20) % Calcium 9.1 (8.5-10.1) mg/dL Magnesium 1.7 L (1.8-2.4) mg/dl Lactate Dehydrogenase (85-227) U/L C-Reactive Protein 22.3 H* (<1.0) mg/dL Med Orders - Current: Current Medications Acetaminophen (Tylenol) 650 mg PO Q4H PRN PRN Reason: Pain (Mild 1-3)/fever Acetaminophen (Tylenol) 650 mg RECTAL Q4H PRN PRN Reason: Pain (mild 1-3) Hydrocodone Bitart/Acetaminophen (Jayess 325-5 Mg) 1 tab PO Q4H PRN PRN Reason: Pain (moderate 4-6) Last Admin: 04/15/18 05:48 Dose: 1 tab Albuterol/Ipratropium (Duoneb 3.0-0.5 Mg/3 Ml) 3 ml NEB Q4H PRN PRN Reason: Shortness Of Breath/wheezing Bisacodyl (Dulcolax) 5 mg PO DAILY PRN PRN Reason: Constipation Clonidine HCl (Catapres) 0.1 mg PO DAILY [facility] Last Admin: 04/15/18 09:00 Dose: 0.1 mg Docusate Sodium (Colace) 100 mg PO BID PRN PRN Reason: Constipation Hydralazine HCl (Apresoline) 20 mg IVPUSH Q4H PRN PRN Reason: Hypertension Last Admin: 04/15/18 05:48 Dose: 20 mg Hydromorphone HCl (Dilaudid) 1 mg IVPUSH Q4H PRN PRN Reason: Pain Last Admin: 04/14/18 17:52 Dose: 1 mg Promethazine HCl 12.5 mg/ (Sodium Chloride) 50.5 mls @ 100 mls/hr IV Q6H PRN PRN Reason: Nausea/Vomiting Lactated Ringer's (Ringers, Lactated) 1,000 mls @ 150 mls/hr IV ASDIRECTED [facility] Last Admin: 04/15/18 09:00 Dose: 150 mls/hr Piperacillin Sod/Tazobactam (Sod 4.5 gm/ Sodium Chloride) 100 mls @ 200 mls/hr IV ONETIME ONE Stop: 04/15/18 10:29 Piperacillin Sod/Tazobactam (Sod 4.5 gm/ Sodium Chloride) 100 mls @ 25 mls/hr IV Q8H [facility] Insulin Human Lispro (Humalog) 0 unit SUBCUT Q6H [facility]; Protocol Last Admin: 04/15/18 05:40 Dose: 2 units Lorazepam (Ativan) 2 mg IVPUSH Q4H PRN PRN Reason: Seizures Lorazepam (Ativan) 1 mg IV Q6H PRN PRN Reason: Anxiety Magnesium Hydroxide (Milk Of Magnesia) 30 ml PO Q12H PRN PRN Reason: Constipation Magnesium Sulfate (Pharmacy To Dose - Magnesium Replacement) 1 dose .XX ASDIRECTED [facility] Metoprolol Tartrate (Lopressor) 5 mg IVPUSH Q4H PRN PRN Reason: Tachycardia Miscellaneous Information (Remove Patch) 0 ea TRDERM Q24H [facility] Miscellaneous Information (Remove Patch) 1 ea TRDERM Q72H [facility] Nicotine (Habitrol) 21 mg TRDERM DAILY PRN PRN Reason: Nicotine Dependence Nitroglycerin (Nitro-Bid 2%) 1 gm TOP Q8H [facility] Last Admin: 04/15/18 09:01 Dose: 1 gm Ondansetron HCl (Zofran) 4 mg IV Q6H PRN PRN Reason: Nausea/Vomiting Last Admin: 04/14/18 18:26 Dose: 4 mg Liraglutide 1.8 Mg 0 each SUBCUT DAILY [facility] Last Admin: 04/15/18 09:01 Dose: Not Given Polyethylene Glycol (Miralax) 17 gm PO DAILY PRN PRN Reason: Constipation Potassium Chloride (Pharmacy To Dose - Potassium Replacement) 1 dose .XX ASDIRECTED [facility] Scopolamine (Transderm-Scop) 1.5 mg TRDERM Q72H PRN PRN Reason: Nausea/Vomiting Senna/Docusate Sodium (Senna Plus) 1 tab PO BID PRN PRN Reason: Constipation Sodium Chloride (Saline Flush) 10 ml FLUSH ASDIRECTED PRN PRN Reason: Keep Vein Open Last Admin: 04/14/18 08:26 Dose: 10 ml Temazepam (Restoril) 15 mg PO BEDTIME PRN PRN Reason: Sleep Discontinued Medications Clonidine HCl (Catapres-Tts 3) 0.3 mg TRDERM ONETIME ONE Stop: 04/14/18 12:39 Last Admin: 04/14/18 13:03 Dose: 0.3 mg Hydromorphone HCl (Dilaudid) 0.5 mg IVPUSH ONETIME ONE Stop: 04/14/18 08:20 Last Admin: 04/14/18 08:26 Dose: 0.5 mg Hydromorphone HCl (Dilaudid) 0.5 mg IVPUSH ONETIME ONE Stop: 04/14/18 09:21 Last Admin: 04/14/18 09:27 Dose: 0.5 mg Sodium Chloride (Normal Saline) 1,000 mls @ 1,000 mls/hr IV .BOLUS STA Stop: 04/14/18 09:16 Last Admin: 04/14/18 08:27 Dose: 1,000 mls/hr Labetalol HCl (Normodyne) 20 mg IVPUSH ONETIME ONE; Protocol Stop: 04/14/18 09:47 Last Admin: 04/14/18 09:49 Dose: 20 mg Labetalol HCl (Normodyne) 20 mg IVPUSH ONETIME ONE; Protocol Stop: 04/14/18 10:50 Last Admin: 04/14/18 10:51 Dose: 20 mg Miscellaneous Information (Remove Patch) 0 ea TRDERM ONETIME ONE Stop: 04/14/18 14:01 Last Admin: 04/14/18 15:27 Dose: Not Given - Exam General: Alert, Oriented, Cooperative GI/Abdominal Exam: Tender (tender in the epigastric region) Consult PN Assessment/Plan (1) Gallstone pancreatitis SNOMED Code(s): 90582563 Code(s): K85.10 - BILIARY ACUTE PANCREATITIS WITHOUT NECROSIS OR INFECTION Priority: High Current Visit: Yes Problem List Initiated/Reviewed/Updated: Yes My Orders Last 24 Hours: My Active Orders 04/15/18 09:45 Piperacillin/Tazobactam [Zosyn] 4.5 gm Sodium Chloride 0.9% [Normal Saline] 100 ml IV Q8H 04/15/18 18:00 Piperacillin/Tazobactam [Zosyn] 4.5 gm Sodium Chloride 0.9% [Normal Saline] 100 ml IV Q8H Plan: 57 yo male, history of multiple medical problems, including ACS s/p 4vCABG (7 years ago), HTN, DM2 (non-insulin dependent), obesity (BMI 33), HD#2 for gallstone pancreatitis. Patient with increase in WBC (11 to 16k), and increase in CRP (2 to 23). - Given patient's co-morbidities and concern for worsening of clinical condition , will transfer the patient to higher level of care. Patient understands and is agreeable to the plan. In fact, patient and his prefers to be close to cardiology care. The case was d/w Dr. Sr, hospitalist at [facility] , who accepted the transfer. - Will initiate Zosyn. - Appreciate the care rendered by the hospitalist service, Dr. Monte. Ricci Lopez M.D., F.A.C.S. General Surgery Pager: [phone]
[2018-04-15] MEDS ORDERED: Piperacillin/Tazobactam 4.5 GM in Sodium Chloride 0.9% 100 ML IV ONE (10:00)
[2018-04-15] MEDS ORDERED: Magnesium Sulfate/Water 2 GM in Premix Bag 1 BAG IV ONE (10:45)
[2018-04-15] MEDS ORDERED: Sodium Chloride 0.9% 1,000 ML IV SCH (12:45)
[2018-04-15] MEDS: HYDROmorphone 1 MG/ML Syringe IVPUSH PRN (13:05)
[2018-04-15] MEDS ORDERED: Piperacillin/Tazobactam 4.5 GM in Sodium Chloride 0.9% 100 ML IV SCH (18:00)
[2018-04-17] MEDS ORDERED: Remove Patch **SCOPOLAMINE TRDERM SCH (18:30)
== END 2018-04-15 13:36 | DRG 282 ==
LOC: JD.ED 07:59 → JD.MS 10:49
PROVIDERS: ADMIT Internal Medicine; ATTEND Internal Medicine
DX: K85.10 Biliary acute pancreatitis without necrosis or infection (principal); I10 Essential (primary) hypertension; E11.9 Type 2 diabetes mellitus without complications; K80.20 Calculus of gallbladder without cholecystitis without obstruction; E66.9 Obesity, unspecified; Z68.33 Body mass index [BMI] 33.0-33.9, adult; I25.2 Old myocardial infarction; Z95.1 Presence of aortocoronary bypass graft; Z79.899 Other long term (current) drug therapy; Z79.82 Long term (current) use of aspirin; Z87.891 Personal history of nicotine dependence; Z79.84 Long term (current) use of oral hypoglycemic drugs
CPT/HCPCS: 36415; 71045; 76705; 76705-26; 80048; 80053; 81001; 82962; 83036; 83615; 83690; 83735; 84484; 85025; 86140; 87040; 87086; 93005; 93010; 96361; 96374; 96375; 96376; 99284; 99285-25; A9270-GY; J0360; J1170; J1815; J2405; J2543; J3475; J3490; J7030; J7040; J7050; J7120